=== PATIENT | male | born 1970 | race Two or more races ===

== ENCOUNTER 2018-06-05 17:59 | Emergency (ER) | payer SELFPAY ==
--- NOTE | 2018-06-05 18:25 | EDM.PDOC ---
ED HPI GENERAL MEDICAL PROBLEM - General Chief Complaint: Neuro Symptoms/Deficits Stated Complaint: AMB Time Seen by Provider: 06/05/18 18:25 Source of Information: Reports: Patient History Limitations: Reports: No Limitations - History of Present Illness INITIAL COMMENTS - FREE TEXT/NARRATIVE: HISTORY AND PHYSICAL: History of present illness: Patient is a 48-year-old male who presents to the emergency room by ambulance after a witnessed seizure. A bystander said that the patient had a seizure that lasted several seconds, he did not fall or hit his head as the bystander was able to hold the patient. Patient denies any urinary or fecal incontinence. He states he has a history of seizures but stopped taking his medications as he felt these medications were no longer needed. When asked about his presentation to the emergency room he denies that he had any seizure-like activity. He states he does not want to be further evaluated with like to be discharged to home. "They made me come get checked out, but I feel fine". Patient does drink alcohol daily, chronic. Denies any drug abuse. He denies any fever, chills, chest pain, shortness of breath or cough. Denies any abdominal pain, nausea, vomiting, diarrhea or constipation. Denies any headache, change in vision, light or noise sensitivity. He has been eating and drinking appropriately. Review of systems: As per history of present illness and below otherwise all systems reviewed and negative. Past medical history: As per history of present illness and as reviewed below otherwise noncontributory. Surgical history: As per history of present illness and as reviewed below otherwise noncontributory. Social history: See social history for further information Family history: As per history of present illness and as reviewed below otherwise noncontributory. Physical exam: General: Well-developed and well-nourished 48-year-old male. Alert and oriented. Nontoxic appearing and in no acute distress. HEENT: Patient does have a small open area at the bottom inner lip which appears he had bit it. This is superficial, no current bleeding noted. Scalp is nontender with palpation, normocephalic, pupils equal and reactive bilaterally, negative for conjunctival pallor or scleral icterus, mucous membranes moist, TMs normal bilaterally, throat clear, neck supple, nontender, trachea midline. No drooling or trismus noted. No meningeal signs. No hot potato voice noted. Lungs: Clear to auscultation, breath sounds equal bilaterally, chest nontender. Heart: S1S2, regular rate and rhythm without overt murmur Abdomen: Soft, nondistended, nontender. Negative for masses or hepatosplenomegaly. Negative for costovertebral tenderness. Pelvis: Stable nontender. Genitourinary: Deferred. Rectal: Deferred. Skin: Intact, warm, dry. No lesions or rashes noted. Extremities: Moves all extremities per self without difficulty or deficits. Neurovascular unremarkable. Neuro: Awake, alert, oriented. Cranial nerves II through XII unremarkable. Cerebellum unremarkable. Motor and sensory unremarkable throughout. Exam nonfocal. Notes: Patient is alert and oriented, he is able to speak in full sentences and carry conversation appropriately. I did discuss the risks of leaving without an evaluation, he states he feels fine and does not want any lab testing, IV fluids or further medical management. Patient will be discharged to home with encouragement to follow-up with his primary care provider in the next 1-2 days. Diagnostics: Declines Therapeutics: Declines Prescription: Declines Impression: Encounter for medical screening Medication noncompliance History of seizure disorder Plan: 1. Please follow-up with your primary caregiver and/or the neurologist for further evaluation and management of your seizure disorder. He should be taking her medications as directed. Please do not drive or operate heavy machinery unless you're been cleared by her neurologist. 2. Return to the ED as needed and as discussed. Definitive disposition and diagnosis as appropriate pending reevaluation and review of above. - Related Data Allergies Allergy/AdvReac Type Severity Reaction Status Date / Time No Known Allergies Allergy Verified 06/05/18 18:21 Home Meds: Home Meds . [No Known Home Meds] 06/05/18 [History] ED ROS GENERAL - Review of Systems Review Of Systems: ROS reveals no pertinent complaints other than HPI. ED EXAM, NEURO - Physical Exam Exam: See Below (See dictation) Course - Vital Signs Last Recorded V/S: Last Vital Signs Temp 97.9 F 06/05/18 18:15 Pulse 121 H 06/05/18 18:15 Resp 16 06/05/18 18:15 BP 112/69 06/05/18 18:15 Pulse Ox 96 06/05/18 18:15 Departure - Departure Time of Disposition: 18:33 Disposition: Home, Self-Care 01 Clinical Impression: Nonadherence to medication, Encounter for medical screening examination, History of seizure disorder - Discharge Information Forms: ED Department Discharge Additional Instructions: The following information is given to patients seen in the emergency department who are being discharged to home. This information is to outline your options for follow-up care. We provide all patients seen in our emergency department with a follow-up referral. The need for follow-up, as well as the timing and circumstances, are variable depending upon the specifics of your emergency department visit. If you don't have a primary care physician on staff, we will provide you with a referral. We always advise you to contact your personal physician following an emergency department visit to inform them of the circumstance of the visit and for follow-up with them and/or the need for any referrals to a consulting specialist. The emergency department will also refer you to a specialist when appropriate. This referral assures that you have the opportunity for follow-up care with a specialist. All of these measure are taken in an effort to provide you with optimal care, which includes your follow-up. Under all circumstances we always encourage you to contact your private physician who remains a resource for coordinating your care. When calling for follow-up care, please make the office aware that this follow-up is from your recent emergency room visit. If for any reason you are refused follow-up, please contact the [facility] Emergency Department at and asked to speak to the emergency department charge nurse. [facility] Primary [facility] [address] [place] [id number] [address] [address] [facility] Specialty Care - Neurology Professional Building [address] [place] [address], [address] [place] [address] 1. Please follow-up with your primary caregiver and/or the neurologist for further evaluation and management of your seizure disorder. He should be taking her medications as directed. Please do not drive or operate heavy machinery unless you're been cleared by her neurologist. 2. Return to the ED as needed and as discussed.
[2018-06-05] MEDS ORDERED: LORazepam 2 MG/ML SDV ONE (20:59)
== END 2018-06-05 18:56 | disposition home or self-care (01) ==
LOC: EDBD → MW.ED 17:59
DX: G40.909 Epilepsy, unspecified, not intractable, without status epilepticus (principal); Z91.14 Patient's other noncompliance with medication regimen
CPT/HCPCS: 99284

== ENCOUNTER 2018-06-05 20:25 | Inpatient (IN) | payer SELFPAY ==
[2018-06-05] MEDS ORDERED: Sodium Chloride 0.9% 1,000 ML IV ONE (20:28)
[2018-06-05] MEDS ORDERED: Sodium Chloride 0.9% 2.5 ML Syringe FLUSH PRN (20:28)
--- NOTE | 2018-06-05 20:34 | EDM.PDOC ---
ED HPI GENERAL MEDICAL PROBLEM - General Chief Complaint: Neuro Symptoms/Deficits Stated Complaint: UNKNOWN Time Seen by Provider: 06/05/18 20:26 - History of Present Illness INITIAL COMMENTS - FREE TEXT/NARRATIVE: HISTORY AND PHYSICAL: History of present illness: The patient is a 48-year-old male with a history of alcoholism and chronic alcohol use was just seen here a few hours ago after being brought here by EMS for a brief seizure witnessed by bystanders. According to that report the patient had a brief seizure but did not fall to the ground and was caught by a bystander and was brought here by EMS. On arrival here he was seen and evaluated and was awake alert and communicative and said to the provider that his first seizure was about a year ago and he was prescribed meds but he's not taking them. The patient at that first visit denied any care and was acting inappropriate fashion without slurred speech and was cooperative and coherent and declined further evaluation. The patient was discharged and was out in our waiting area when it was noticed by registration that he was on the ground having a grand mal seizure. Our triage nurse when out there and put him in the recovery position and he seemed to stop seizing and then restart again and on my arrival he was post ictal in the recovery position maintaining his airway. Currently in the ED the patient is moving all extremities and is not talking with me currently. He had no loss of bowel or bladder and does not offer any more history. Review of systems: As per history of present illness and below otherwise all systems reviewed and negative. Past medical history: As per history of present illness and as reviewed below otherwise noncontributory. Surgical history: As per history of present illness and as reviewed below otherwise noncontributory. Social history: No reported history of drug or alcohol abuse. Family history: As per history of present illness and as reviewed below otherwise noncontributory. Physical exam: General: Well-developed cachectic man who is nontoxic and moving all extremities and maintaining his airway. He appears postictal at this time and is nonverbal. HEENT: Atraumatic, normocephalic, pupils reactive, negative for conjunctival pallor or scleral icterus, mucous membranes moist, throat clear, neck supple, nontender, trachea midline. The patient has overall bed 10 constitution but he did bite his upper lip and there is some minimal bleeding and a contusion present. There is no evidence of any scalp defects or deformities and no midline step-offs or defects of the cervical spine Lungs: Clear to auscultation bilaterally with an occasional rhonchi, sounds equal bilaterally, chest nontender. Heart: S1S2, regular rhythm and sensory tachycardic rate on my evaluation no overt murmurs Abdomen: Soft, nondistended, nontender. Negative for masses or hepatosplenomegaly. NABS Pelvis: Stable nontender. Genitourinary: Grossly normal male with bilaterally descended testicles and no evidence of blood at the urethral meatus. There is no loss of bowel or bladder on the patient's underwear Rectal: Deferred. Extremities: Atraumatic, full range of motion with spontaneous movement of all extremities and there is no evidence of any defects deformities or soft tissue swellings Neurovascular unremarkable. Neuro: responsive to painful stimuli but not responding to voice as of yet and appears postictal. Further exam is on available at this time Motor and sensory unremarkable throughout. Exam nonfocal. back: There are no midline step-offs or defects of the thoracic or lumbar spine no posterior rib or posterior pelvis defects or crepitus and no soft tissue injury such as ecchymosis abrasions or soft tissue swelling Diagnostics: Accu-Chek CBC CMP ammonia level alcohol level INR lipase magnesium level UA UDS CT scan of the head Therapeutics: IV O2 monitor IV fluids seizure precautions Ativan Rocephin I was contacted by the lab with them stating that they wanted to redraw the patient's blood work as his CMP results were very elevated. I'm currently awaiting those testing results. The patient responds to voice and exhibits spastic-like movement and some tremors in all of his extremities but is awake and alert and responding to voice and extremities can be moved and redirected. Will give some Ativan as this may be alcohol related. 2218: Case was discussed with Dr. Charles our hospitalist and I've gone over all the labs with him. At this point he is purely alcohol withdrawal/delirium tremens as he is talking about people that are not in the room. He continues to have tremulousness and his alcohol level is 0. He likely had an alcohol withdrawal seizure that we witnessed earlier and does have a history of same. We will admit the patient to the ICU and continue to titrate Ativan. Dr. Charles does not want an Ativan drip at this point. He is aware of the GI labs and the patient's clinical dehydration as well as lab dehydration. Initially the lab reported an elevated ammonia but when it was repeated it was within normal limits. Dr. Charles is also aware of the UA results and that I will give him a dose of Rocephin. Critical care time excluding procedures: 35min Impression: Alcohol withdrawal with delirium, Seizure with history of seizure and medication noncompliance, history of chronic alcoholism and alcohol abuse dehydration, mildly elevated LFTs, UTI Definitive disposition and diagnosis as appropriate pending reevaluation and review of above. - Related Data Allergies Allergy/AdvReac Type Severity Reaction Status Date / Time No Known Allergies Allergy Verified 06/05/18 20:30 Home Meds: Home Meds . [No Known Home Meds] 06/05/18 [History] Past Medical History Neurological History: Reports: Seizure Psychiatric History: Reports: Addiction ED ROS GENERAL - Review of Systems Review Of Systems: ROS reveals no pertinent complaints other than HPI. ED EXAM, GENERAL - Physical Exam Exam: See Below (see dictation) Course - Vital Signs Last Recorded V/S: Last Vital Signs Temp 37.4 C 06/05/18 22:12 Pulse 116 H 06/05/18 22:12 Resp 20 06/05/18 22:12 BP 123/83 06/05/18 22:12 Pulse Ox 98 06/05/18 22:12 - Orders/Labs/Meds Orders: Active Orders 24 hr Category Date Time Status Patient Status [ADT] Stat ADT 06/05/18 22:19 Ordered Blood Glucose Check, Bedside [RC] ONETIME Care 06/05/18 20:27 Active Cardiac Monitoring [RC] . DIRECTED Care 06/05/18 20:27 Active Oxygen Therapy, ED [RC] ASDIRECTED Care 06/05/18 20:27 Active Pulse Oximetry [RC] ASDIRECTED Care 06/05/18 20:27 Active Sodium Chloride 0.9% @ 125 MLS/HR (1,000ml) Med 06/05/18 22:30 Ordered Sodium Chloride 0.9% [Normal Saline] 1,000 ml IV ASDIRECTED Sodium Chloride 0.9% [Saline Flush] Med 06/05/18 20:28 Active 10 ml FLUSH ASDIRECTED PRN Sodium Chloride 0.9% [Saline Flush] Med 06/05/18 20:28 Active 2.5 ml FLUSH ASDIRECTED PRN cefTRIAXone [Rocephin in Dextrose,Iso-Osm 1 GM/50 ML] 1 Med 06/05/18 22:09 Active gm Premix Bag 1 bag IV ONETIME Saline Lock Insert [OM.PC] Stat Oth 06/05/18 20:27 Ordered Medication Orders Ceftriaxone Sodium/Dextrose 1 (gm/ Premix) 50 mls @ 100 mls/hr IV ONETIME ONE Stop: 06/05/18 22:38 Sodium Chloride (Normal Saline) 1,000 mls @ 125 mls/hr IV ASDIRECTED DADA Sodium Chloride (Saline Flush) 10 ml FLUSH ASDIRECTED PRN PRN Reason: Keep Vein Open Sodium Chloride (Saline Flush) 2.5 ml FLUSH ASDIRECTED PRN PRN Reason: Keep Vein Open Labs: Laboratory Tests 06/05/18 06/05/18 06/05/18 Range/Units 20:40 20:40 20:40 WBC 8.76 (4.0-11.0) K/uL RBC 4.86 (4.50-5.90) M/uL Hgb 17.1 H (13.0-17.0) g/dL Hct 48.8 (38.0-50.0) % MCV 100.4 H (80.0-98.0) fL MCH 35.2 H (27.0-32.0) pg MCHC 35.0 (31.0-37.0) g/dL RDW Std Deviation 50.5 (28.0-62.0) fl RDW Coeff of Diana 14 (11.0-15.0) % Plt Count 116 L (150-400) K/uL MPV 13.20 H (7.40-12.00) fL Neut % (Auto) 72.3 (48.0-80.0) % Lymph % (Auto) 13.9 L (16.0-40.0) % Power % (Auto) 13.7 (0.0-15.0) % Eos % (Auto) 0.0 (0.0-7.0) % Baso % (Auto) 0.1 (0.0-1.5) % Neut # (Auto) 6.3 H (1.4-5.7) K/uL Lymph # (Auto) 1.2 (0.6-2.4) K/uL Power # (Auto) 1.2 H (0.0-0.8) K/uL Eos # (Auto) 0.0 (0.0-0.7) K/uL Baso # (Auto) 0.0 (0.0-0.1) K/uL INR 1.05 Sodium (136-148) mmol/L Potassium (3.5-5.1) mmol/L Chloride (98-107) mmol/L Carbon Dioxide (21.0-32.0) mmol/L BUN (7.0-18.0) mg/dL Creatinine (0.8-1.3) mg/dL Est Cr Clr Drug Dosing Estimated GFR (MDRD) ml/min Glucose (74-106) mg/dL Calcium (8.5-10.1) mg/dL Magnesium (1.8-2.4) mg/dL Total Bilirubin (0.2-1.0) mg/dL AST (15-37) IU/L ALT (14-63) IU/L Alkaline Phosphatase (46-116) U/L Ammonia 40 (19-54) ug/dL Total Protein (6.4-8.2) g/dL Albumin (3.4-5.0) g/dL Globulin (2.6-4.0) g/dL Albumin/Globulin Ratio (0.9-1.6) Lipase (73-393) U/L Urine Color Urine Appearance Urine pH (5.0-8.0) Ur Specific [place] (1.001-1.035) Urine Protein (NEGATIVE) mg/dL Urine Glucose (UA) (NEGATIVE) mg/dL Urine Ketones (NEGATIVE) mg/dL Urine Occult Blood (NEGATIVE) Urine Nitrite (NEGATIVE) Urine Bilirubin (NEGATIVE) Urine Ictotest Urine Urobilinogen (<2.0) EU/dL Ur Leukocyte Esterase (NEGATIVE) Urine RBC (0-2/HPF) Urine WBC (0-5/HPF) Ur Epithelial Cells (NONE-FEW) Amorphous Sediment (NEGATIVE) Urine Bacteria (NEGATIVE) Hyaline Casts (0-2/LPF) Urine Mucus (NONE-MOD) Urine Opiates Screen (NEGATIVE) Ur Oxycodone Screen (NEGATIVE) Urine Methadone Screen (NEGATIVE) Ur Barbiturates Screen (NEGATIVE) Ur Phencyclidine Scrn (NEGATIVE) Ur Amphetamine Screen (NEGATIVE) U Methamphetamines Scrn (NEGATIVE) U Benzodiazepines Scrn (NEGATIVE) U Cocaine Metab Screen (NEGATIVE) U Marijuana (THC) Screen (NEGATIVE) Ethyl Alcohol mg/dL 06/05/18 06/05/18 06/05/18 Range/Units 20:45 20:45 21:17 WBC (4.0-11.0) K/uL RBC (4.50-5.90) M/uL Hgb (13.0-17.0) g/dL Hct (38.0-50.0) % MCV (80.0-98.0) fL MCH (27.0-32.0) pg MCHC (31.0-37.0) g/dL RDW Std Deviation (28.0-62.0) fl RDW Coeff of Diana (11.0-15.0) % Plt Count (150-400) K/uL MPV (7.40-12.00) fL Neut % (Auto) (48.0-80.0) % Lymph % (Auto) (16.0-40.0) % Power % (Auto) (0.0-15.0) % Eos % (Auto) (0.0-7.0) % Baso % (Auto) (0.0-1.5) % Neut # (Auto) (1.4-5.7) K/uL Lymph # (Auto) (0.6-2.4) K/uL Power # (Auto) (0.0-0.8) K/uL Eos # (Auto) (0.0-0.7) K/uL Baso # (Auto) (0.0-0.1) K/uL INR Sodium 134 L (136-148) mmol/L Potassium 3.3 L (3.5-5.1) mmol/L Chloride 93 L (98-107) mmol/L Carbon Dioxide 25.6 (21.0-32.0) mmol/L BUN 35 H (7.0-18.0) mg/dL Creatinine 2.4 H (0.8-1.3) mg/dL Est Cr Clr Drug Dosing TNP Estimated GFR (MDRD) 28.9 ml/min Glucose 122 H (74-106) mg/dL Calcium 9.4 (8.5-10.1) mg/dL Magnesium 1.9 (1.8-2.4) mg/dL Total Bilirubin 1.7 H (0.2-1.0) mg/dL AST 123 H (15-37) IU/L ALT 75 H (14-63) IU/L Alkaline Phosphatase 83 (46-116) U/L Ammonia (19-54) ug/dL Total Protein 8.1 (6.4-8.2) g/dL Albumin 3.8 (3.4-5.0) g/dL Globulin 4.3 H (2.6-4.0) g/dL Albumin/Globulin Ratio 0.9 (0.9-1.6) Lipase 101 (73-393) U/L Urine Color DARK YELLOW Urine Appearance CLOUDY Urine pH 5.5 (5.0-8.0) Ur Specific [place] >= 1.030 (1.001-1.035) Urine Protein >=300 H (NEGATIVE) mg/dL Urine Glucose (UA) NEGATIVE (NEGATIVE) mg/dL Urine Ketones 15 H (NEGATIVE) mg/dL Urine Occult Blood LARGE H (NEGATIVE) Urine Nitrite POSITIVE H (NEGATIVE) Urine Bilirubin MODERATE H (NEGATIVE) Urine Ictotest NEGATIVE Urine Urobilinogen 1.0 (<2.0) EU/dL Ur Leukocyte Esterase NEGATIVE (NEGATIVE) Urine RBC 0-3 (0-2/HPF) Urine WBC 3-6 (0-5/HPF) Ur Epithelial Cells FEW (NONE-FEW) Amorphous Sediment LIGHT (NEGATIVE) Urine Bacteria 3+ H (NEGATIVE) Hyaline Casts 12-15 (0-2/LPF) Urine Mucus LIGHT (NONE-MOD) Urine Opiates Screen NEGATIVE (NEGATIVE) Ur Oxycodone Screen NEGATIVE (NEGATIVE) Urine Methadone Screen NEGATIVE (NEGATIVE) Ur Barbiturates Screen NEGATIVE (NEGATIVE) Ur Phencyclidine Scrn NEGATIVE (NEGATIVE) Ur Amphetamine Screen NEGATIVE (NEGATIVE) U Methamphetamines Scrn NEGATIVE (NEGATIVE) U Benzodiazepines Scrn NEGATIVE (NEGATIVE) U Cocaine Metab Screen NEGATIVE (NEGATIVE) U Marijuana (THC) Screen NEGATIVE (NEGATIVE) Ethyl Alcohol <3 mg/dL Meds: Medications Generic Name Dose Route Start Last Admin Trade Name Freq PRN Reason Stop Dose Admin Ceftriaxone Sodium/Dextrose 1 50 mls @ 100 mls/hr 06/05/18 22:09 gm/ Premix IV 06/05/18 22:38 ONETIME ONE Sodium Chloride 1,000 mls @ 125 mls/hr 06/05/18 22:30 Normal Saline IV ASDIRECTED DADA Sodium Chloride 10 ml 06/05/18 20:28 Saline Flush FLUSH ASDIRECTED PRN Keep Vein Open Sodium Chloride 2.5 ml 06/05/18 20:28 Saline Flush FLUSH ASDIRECTED PRN Keep Vein Open Discontinued Medications Generic Name Dose Route Start Last Admin Trade Name Martha PRN Reason Stop Dose Admin Sodium Chloride 1,000 mls @ 999 mls/hr 06/05/18 20:28 06/05/18 20:36 Normal Saline IV 06/05/18 21:28 999 mls/hr STAT ONE Administration Lactulose 20 gm 06/05/18 22:08 Chronulac PO 06/05/18 22:09 ONETIME ONE Lorazepam 1 mg 06/05/18 21:17 06/05/18 21:19 Ativan IVPUSH 06/05/18 21:18 1 mg NOW STA Administration Lorazepam 1 mg 06/05/18 22:18 Ativan IVPUSH 06/05/18 22:19 ONETIME STA Departure - Departure Time of Disposition: 22:22 Disposition: Admitted As Inpatient 65 Condition: Serious Clinical Impression: Alcohol withdrawal with delirium, Alcoholism /alcohol abuse - Discharge Information Forms: ED Department Discharge - My Orders Last 24 Hours: My Active Orders 06/05/18 20:27 Blood Glucose Check, Bedside [RC] ONETIME Cardiac Monitoring [RC] . DIRECTED Oxygen Therapy, ED [RC] ASDIRECTED Pulse Oximetry [RC] ASDIRECTED Saline Lock Insert [OM.PC] Stat 06/05/18 20:28 Sodium Chloride 0.9% [Saline Flush] 10 ml FLUSH ASDIRECTED PRN Sodium Chloride 0.9% [Saline Flush] 2.5 ml FLUSH ASDIRECTED PRN 06/05/18 22:09 cefTRIAXone [Rocephin in Dextrose,Iso-Osm 1 GM/50 ML] 1 gm Premix Bag 1 bag IV ONETIME 06/05/18 22:19 Patient Status [ADT] Stat 06/05/18 22:30 Sodium Chloride 0.9% @ 125 MLS/HR (1,000ml) Sodium Chloride 0.9% [Normal Saline ] 1,000 ml IV ASDIRECTED - Assessment/Plan Last 24 Hours: My Active Orders 06/05/18 20:27 Blood Glucose Check, Bedside [RC] ONETIME Cardiac Monitoring [RC] . DIRECTED Oxygen Therapy, ED [RC] ASDIRECTED Pulse Oximetry [RC] ASDIRECTED Saline Lock Insert [OM.PC] Stat 06/05/18 20:28 Sodium Chloride 0.9% [Saline Flush] 10 ml FLUSH ASDIRECTED PRN Sodium Chloride 0.9% [Saline Flush] 2.5 ml FLUSH ASDIRECTED PRN 06/05/18 22:09 cefTRIAXone [Rocephin in Dextrose,Iso-Osm 1 GM/50 ML] 1 gm Premix Bag 1 bag IV ONETIME 06/05/18 22:19 Patient Status [ADT] Stat 06/05/18 22:30 Sodium Chloride 0.9% @ 125 MLS/HR (1,000ml) Sodium Chloride 0.9% [Normal Saline ] 1,000 ml IV ASDIRECTED
[2018-06-05] MEDS ORDERED: LORazepam 2 MG/ML SDV IVPUSH STA ×2 (21:17→22:18)
--- NOTE | 2018-06-05 21:32 | CT ---
INDICATION: pain, had witnessed seizure CT HEAD WITHOUT CONTRAST TECHNIQUE: Multiple axial CT images were performed through the head without intravenous contrast administration. COMPARISON: No previous studies are currently available for comparison. FINDINGS: No acute intracranial hemorrhage is identified. No extra-axial collections are evident and there is no mass effect or midline shift. Ventricles are normal in size and configuration. Brain parenchyma appears normal with unremarkable hager-white differentiation. There is a chronic-appearing mild medial blowout fracture of the left orbit. Osseous structures are within normal limits and no acute fractures are seen. Included portions of the paranasal sinuses and mastoid air cells are normally aerated. IMPRESSION: No acute intracranial abnormality identified. TIERNEY PRESTON MD [facility] Dictated by: Jason Preston MD @ 06/05/2018 21:31:32 (Electronically Signed)
[2018-06-05 22:03] LABS: CHLORIDE,CL 93 mmol/L (98-107); SODIUM,NA 134 mmol/L (136-148)
[2018-06-05] MEDS ORDERED: Lactulose Soln 10 GM/15 ML 15 ML UD Cup PO ONE (22:08)
[2018-06-05] MEDS ORDERED: cefTRIAXone 1 GM in Premix Bag 1 BAG IV ONE (22:09)
[2018-06-05] MEDS ORDERED: Sodium Chloride 0.9% 0 ML ONE (22:29)
[2018-06-05] MEDS ORDERED: Sodium Chloride 0.9% 1,000 ML IV SCH (22:30)
[2018-06-05] MEDS ORDERED: Morphine 2 MG/ML Syringe IVPUSH PRN (23:43)
[2018-06-05] MEDS ORDERED: MVI, Adult with Vitamin K 10 ML, Thiamine 100 MG, Folic Acid 1 MG in Sodium Chloride 0.... IV ONE ×4 (23:48)
--- NOTE | 2018-06-05 23:50 | PCM.HP ---
H&P History of Present Illness - General Date of Service: 06/06/18 Admit Problem/Dx: Admission Diagnosis/Problem Admission Diagnosis/Problem Alcohol withdrawal syndrome, with delirium Source of Information: Old Records History Limitations: Reports: Altered Mental Status - History of Present Illness Initial Comments - Free Text/Narative: The patient is a 48-year-old gentleman who had presented to the emergency department out of concern for seizure. This was witnessed by bystanders and he is brought in by EMS. The patient has a long history of alcoholism and chronic alcohol abuse. The patient had first had declined any care and was acting appropriate and he was noted to have a seizure in the waiting room. Since that time the patient is been mentally altered, tremors, hallucinating and having inappropriate conversations. Secondary to the patient's altered mental status he is not able to participate in any meaningful way in his history and physical. Information has been taken from the patient's previous records and family members are not available. Onset of Symptoms: Reports: Unknown/Unsure - Related Data Allergies/Adverse Reactions: Allergies Allergy/AdvReac Type Severity Reaction Status Date / Time No Known Allergies Allergy Verified 06/05/18 20:30 Home Medications: Home Meds . [No Known Home Meds] 06/05/18 [History] Past Medical History Neurological History: Reports: Seizure Psychiatric History: Reports: Addiction - Past Surgical History Neurological Surgical History: Reports: None Social & Family History - Family History Family Medical History: Noncontributory - Tobacco Use Smoking Status *Q: Never Smoker Second Hand Smoke Exposure: No - Caffeine Use Caffeine Use: Reports: None - Alcohol Use Alcohol Use History: Yes Days Per Week of Alcohol Use: 7 Number of Drinks Per Day: 12 Total Drinks Per Week: 84 - Recreational Drug Use Recreational Drug Use: No H&P Review of Systems - Review of Systems: Review Of Systems: Unable To Obtain Exam - Exam Exam: See Below - Vital Signs Vital Signs: Last Vital Signs Temp 37.4 C 06/05/18 22:12 Pulse 116 H 06/05/18 22:12 Resp 20 06/05/18 22:12 BP 123/83 06/05/18 22:12 Pulse Ox 98 06/05/18 22:12 Weight: 53.4 kg - Exam Quality Assessment: Supplemental Oxygen General: No: Alert, Oriented, Cooperative HEENT: Conjunctiva Clear, Nares Patent. No: Mucosa Moist & [place] (Dry, poor oral hygiene) Neck: Supple, Trachea Midline Lungs: Clear to Auscultation, Normal Respiratory Effort Cardiovascular: Regular Rhythm. No: Regular Rate (Tachycardia 110 on monitor) GI/Abdominal Exam: Normal Bowel Sounds, Soft, No Distention (Male) Exam: Deferred Rectal (Males) Exam: Deferred Back Exam: Normal Inspection. No: Full Range of Motion (Unable to fully assess) Extremities: Normal Inspection, No Pedal Edema Skin: Warm, Dry, Intact Neurological: No: Cranial Nerves Intact (Unable to fully assess), Normal Speech Neuro Extensive - Mental Status: No: Alert, Oriented x3, Normal Mood/Affect, Normal Cognition Psychiatric: Agitated, Hallucinations, Withdrawal Symptoms - Patient Data Lab Results Last 24 hrs: Laboratory Results - last 24 hr 06/05/18 06/05/18 06/05/18 Range/Units 20:40 20:40 20:40 WBC 8.76 (4.0-11.0) K/uL RBC 4.86 (4.50-5.90) M/uL Hgb 17.1 H (13.0-17.0) g/dL Hct 48.8 (38.0-50.0) % MCV 100.4 H (80.0-98.0) fL MCH 35.2 H (27.0-32.0) pg MCHC 35.0 (31.0-37.0) g/dL RDW Std Deviation 50.5 (28.0-62.0) fl RDW Coeff of Diana 14 (11.0-15.0) % Plt Count 116 L (150-400) K/uL MPV 13.20 H (7.40-12.00) fL Neut % (Auto) 72.3 (48.0-80.0) % Lymph % (Auto) 13.9 L (16.0-40.0) % Ward % (Auto) 13.7 (0.0-15.0) % Eos % (Auto) 0.0 (0.0-7.0) % Baso % (Auto) 0.1 (0.0-1.5) % Neut # (Auto) 6.3 H (1.4-5.7) K/uL Lymph # (Auto) 1.2 (0.6-2.4) K/uL Ward # (Auto) 1.2 H (0.0-0.8) K/uL Eos # (Auto) 0.0 (0.0-0.7) K/uL Baso # (Auto) 0.0 (0.0-0.1) K/uL INR 1.05 Sodium (136-148) mmol/L Potassium (3.5-5.1) mmol/L Chloride (98-107) mmol/L Carbon Dioxide (21.0-32.0) mmol/L BUN (7.0-18.0) mg/dL Creatinine (0.8-1.3) mg/dL Est Cr Clr Drug Dosing Estimated GFR (MDRD) ml/min Glucose (74-106) mg/dL Calcium (8.5-10.1) mg/dL Magnesium (1.8-2.4) mg/dL Total Bilirubin (0.2-1.0) mg/dL AST (15-37) IU/L ALT (14-63) IU/L Alkaline Phosphatase (46-116) U/L Ammonia 40 (19-54) ug/dL Total Protein (6.4-8.2) g/dL Albumin (3.4-5.0) g/dL Globulin (2.6-4.0) g/dL Albumin/Globulin Ratio (0.9-1.6) Lipase (73-393) U/L Urine Color Urine Appearance Urine pH (5.0-8.0) Ur Specific [place] (1.001-1.035) Urine Protein (NEGATIVE) mg/dL Urine Glucose (UA) (NEGATIVE) mg/dL Urine Ketones (NEGATIVE) mg/dL Urine Occult Blood (NEGATIVE) Urine Nitrite (NEGATIVE) Urine Bilirubin (NEGATIVE) Urine Ictotest Urine Urobilinogen (<2.0) EU/dL Ur Leukocyte Esterase (NEGATIVE) Urine RBC (0-2/HPF) Urine WBC (0-5/HPF) Ur Epithelial Cells (NONE-FEW) Amorphous Sediment (NEGATIVE) Urine Bacteria (NEGATIVE) Hyaline Casts (0-2/LPF) Urine Mucus (NONE-MOD) Urine Opiates Screen (NEGATIVE) Ur Oxycodone Screen (NEGATIVE) Urine Methadone Screen (NEGATIVE) Ur Barbiturates Screen (NEGATIVE) Ur Phencyclidine Scrn (NEGATIVE) Ur Amphetamine Screen (NEGATIVE) U Methamphetamines Scrn (NEGATIVE) U Benzodiazepines Scrn (NEGATIVE) U Cocaine Metab Screen (NEGATIVE) U Marijuana (THC) Screen (NEGATIVE) Ethyl Alcohol mg/dL 06/05/18 06/05/18 06/05/18 Range/Units 20:45 20:45 21:17 WBC (4.0-11.0) K/uL RBC (4.50-5.90) M/uL Hgb (13.0-17.0) g/dL Hct (38.0-50.0) % MCV (80.0-98.0) fL MCH (27.0-32.0) pg MCHC (31.0-37.0) g/dL RDW Std Deviation (28.0-62.0) fl RDW Coeff of Diana (11.0-15.0) % Plt Count (150-400) K/uL MPV (7.40-12.00) fL Neut % (Auto) (48.0-80.0) % Lymph % (Auto) (16.0-40.0) % Ward % (Auto) (0.0-15.0) % Eos % (Auto) (0.0-7.0) % Baso % (Auto) (0.0-1.5) % Neut # (Auto) (1.4-5.7) K/uL Lymph # (Auto) (0.6-2.4) K/uL Ward # (Auto) (0.0-0.8) K/uL Eos # (Auto) (0.0-0.7) K/uL Baso # (Auto) (0.0-0.1) K/uL INR Sodium 134 L (136-148) mmol/L Potassium 3.3 L (3.5-5.1) mmol/L Chloride 93 L (98-107) mmol/L Carbon Dioxide 25.6 (21.0-32.0) mmol/L BUN 35 H (7.0-18.0) mg/dL Creatinine 2.4 H (0.8-1.3) mg/dL Est Cr Clr Drug Dosing TNP Estimated GFR (MDRD) 28.9 ml/min Glucose 122 H (74-106) mg/dL Calcium 9.4 (8.5-10.1) mg/dL Magnesium 1.9 (1.8-2.4) mg/dL Total Bilirubin 1.7 H (0.2-1.0) mg/dL AST 123 H (15-37) IU/L ALT 75 H (14-63) IU/L Alkaline Phosphatase 83 (46-116) U/L Ammonia (19-54) ug/dL Total Protein 8.1 (6.4-8.2) g/dL Albumin 3.8 (3.4-5.0) g/dL Globulin 4.3 H (2.6-4.0) g/dL Albumin/Globulin Ratio 0.9 (0.9-1.6) Lipase 101 (73-393) U/L Urine Color DARK YELLOW Urine Appearance CLOUDY Urine pH 5.5 (5.0-8.0) Ur Specific [place] >= 1.030 (1.001-1.035) Urine Protein >=300 H (NEGATIVE) mg/dL Urine Glucose (UA) NEGATIVE (NEGATIVE) mg/dL Urine Ketones 15 H (NEGATIVE) mg/dL Urine Occult Blood LARGE H (NEGATIVE) Urine Nitrite POSITIVE H (NEGATIVE) Urine Bilirubin MODERATE H (NEGATIVE) Urine Ictotest NEGATIVE Urine Urobilinogen 1.0 (<2.0) EU/dL Ur Leukocyte Esterase NEGATIVE (NEGATIVE) Urine RBC 0-3 (0-2/HPF) Urine WBC 3-6 (0-5/HPF) Ur Epithelial Cells FEW (NONE-FEW) Amorphous Sediment LIGHT (NEGATIVE) Urine Bacteria 3+ H (NEGATIVE) Hyaline Casts 12-15 (0-2/LPF) Urine Mucus LIGHT (NONE-MOD) Urine Opiates Screen NEGATIVE (NEGATIVE) Ur Oxycodone Screen NEGATIVE (NEGATIVE) Urine Methadone Screen NEGATIVE (NEGATIVE) Ur Barbiturates Screen NEGATIVE (NEGATIVE) Ur Phencyclidine Scrn NEGATIVE (NEGATIVE) Ur Amphetamine Screen NEGATIVE (NEGATIVE) U Methamphetamines Scrn NEGATIVE (NEGATIVE) U Benzodiazepines Scrn NEGATIVE (NEGATIVE) U Cocaine Metab Screen NEGATIVE (NEGATIVE) U Marijuana (THC) Screen NEGATIVE (NEGATIVE) Ethyl Alcohol <3 mg/dL Result Diagrams: 06/05/18 20:40 06/05/18 21:17 - Problem List (1) Alcohol withdrawal with delirium SNOMED Code(s): 3307433 ICD Code: F10.231 - ALCOHOL DEPENDENCE WITH WITHDRAWAL DELIRIUM Status: Acute Current Visit: No (2) History of seizure disorder SNOMED Code(s): 390736638 ICD Code: Z86.69 - PERSONAL HISTORY OF DIS OF THE NERVOUS SYS AND SENSE ORGANS Status: Acute Current Visit: No (3) Alcoholism /alcohol abuse SNOMED Code(s): 0765210 ICD Code: F10.20 - ALCOHOL DEPENDENCE, UNCOMPLICATED Status: Acute Current Visit: No Problem List Initiated/Reviewed/Updated: Yes Orders Last 24hrs: Active Orders 24 hr Category Date Time Status Patient Status [ADT] Stat ADT 06/05/18 22:19 Active Bedrest Bedside Commode [RC] ASDIRECTED Care 06/05/18 23:43 Ordered Blood Glucose Check, Bedside [RC] ONETIME Care 06/05/18 20:27 Active CIWAA Assessment [RC] Q1H Care 06/05/18 23:43 Ordered Cardiac Monitoring [RC] . DIRECTED Care 06/05/18 20:27 Active Cardiac Monitoring [RC] CONTINUOUS Care 06/05/18 23:43 Ordered Oxygen Therapy [RC] PRN Care 06/05/18 23:43 Ordered Oxygen Therapy, ED [RC] ASDIRECTED Care 06/05/18 20:27 Active Pulse Oximetry [RC] ASDIRECTED Care 06/05/18 20:27 Active Urinary Catheter Assessment [RC] ASDIRECTED Care 06/05/18 23:43 Ordered VTE/DVT Education [RC] PER UNIT ROUTINE Care 06/05/18 23:43 Ordered Vital Signs [RC] Q4H Care 06/05/18 23:43 Ordered Nothing per Oral Now Diet [DIET] Diet 06/05/18 Breakfast Ordered CBC WITH AUTO DIFF [HEME] AM Lab 06/06/18 05:11 Ordered COMPREHENSIVE METABOLIC PN,CMP [CHEM] AM Lab 06/06/18 05:11 Ordered MAGNESIUM [CHEM] AM Lab 06/06/18 05:11 Ordered Enoxaparin [Lovenox] Med 06/05/18 23:45 Ordered 40 mg SUBCUT Q24H LORazepam 20 MG in Normal Saline @ 1 MG/HR(100ml) Med 06/05/18 23:45 Ordered LORazepam [Ativan] 20 mg Sodium Chloride 0.9% [Normal Saline] 90 ml IV TITRATE MVI, Adult with Vitamin K [Infuvite Adult] 10 ml Med 06/05/18 23:48 Ordered Thiamine [Vitamin B-1] 100 mg Folic Acid 1 mg Sodium Chloride 0.9% [Normal Saline] 1,000 ml IV ONETIME Morphine Med 06/05/18 23:43 Ordered 2 mg IVPUSH Q2H PRN Ondansetron [Zofran] Med 06/05/18 23:45 Ordered 4 mg IVPUSH Q4H Sodium Chloride 0.9% [Normal Saline] 1,000 ml Med 06/05/18 22:30 Active IV ASDIRECTED Sodium Chloride 0.9% [Saline Flush] Med 06/05/18 20:28 Active 10 ml FLUSH ASDIRECTED PRN Sodium Chloride 0.9% [Saline Flush] Med 06/05/18 20:28 Active 2.5 ml FLUSH ASDIRECTED PRN Saline Lock Insert [OM.PC] Stat Oth 06/05/18 20:27 Ordered Seizure Precautions [OM.PC] Routine Oth 06/05/18 23:49 Ordered Resuscitation Status Routine Resus Stat 06/05/18 23:43 Ordered Medication Orders Enoxaparin Sodium (Lovenox) 40 mg SUBCUT Q24H DADA Sodium Chloride (Normal Saline) 1,000 mls @ 125 mls/hr IV ASDIRECTED DADA Last Admin: 06/05/18 22:23 Dose: 125 mls/hr Lorazepam 20 mg/ Sodium (Chloride) 100 mls @ 5 mls/hr IV TITRATE DADA; Protocol Multivitamins/Minerals 10 ml/Thiamine HCl 100 mg/ Folic Acid 1 mg/ Sodium Chloride 1,011.2 mls @ 100 mls/hr IV ONETIME ONE Stop: 06/06/18 09:54 Morphine Sulfate (Morphine) 2 mg IVPUSH Q2H PRN PRN Reason: Pain (severe 7-10) Stop: 06/06/18 23:44 Ondansetron HCl (Zofran) 4 mg IVPUSH Q4H DADA Sodium Chloride (Saline Flush) 10 ml FLUSH ASDIRECTED PRN PRN Reason: Keep Vein Open Sodium Chloride (Saline Flush) 2.5 ml FLUSH ASDIRECTED PRN PRN Reason: Keep Vein Open Assessment/Plan Comment:: The patient is a 48-year-old gentleman who apparently is having alcohol related withdrawal seizures and delirium tremens. The patient will be admitted to the ICU as inpatient. I've ordered a banana bag with multivitamins and thiamine and folate. The patient will also have a Hurley catheter installed. Seizure precautions been ordered. The patient will be placed on a titrated Ativan IV protocol. Repeat laboratory studies have been ordered for the morning. Patient would likely require intense inpatient rehabilitation if desired. We'll keep the patient on telemetry. CIWA has been started. DVT prophylaxis with Lovenox.
[2018-06-06] MEDS ORDERED: LORazepam 2 MG/ML SDV IV SCH (00:45)
[2018-06-06] MEDS: Enoxaparin 30 MG/0.3 ML Syringe SUBCUT SCH ×2 (01:03→23:11)
[2018-06-06] MEDS: Pantoprazole 40 MG Vial IVPUSH SCH (01:03)
[2018-06-06] MEDS: Ondansetron 4 MG/2 ML SDV IVPUSH SCH ×5 (01:16→15:16)
[2018-06-06] MEDS ORDERED: LORazepam 2 MG/ML SDV IV PRN ×2 (02:53→03:08)
[2018-06-06] MEDS: LORazepam 2 MG/ML SDV IV PRN ×10 (06:14→19:55)
[2018-06-06 07:12] LABS: CHLORIDE,CL 99 mmol/L (98-107); SODIUM,NA 138 mmol/L (136-148)
--- NOTE | 2018-06-06 08:29 | PCM.PN ---
- General Info Date of Service: 06/06/18 Admission Dx/Problem (Free Text): Admission Diagnosis/Problem Admission Diagnosis/Problem Alcohol withdrawal syndrome, with delirium Subjective Update: The patient is a 48-year-old gentleman who was admitted to ICU secondary to acute delirium tremens and seizure due to alcohol withdrawal. The patient is somewhat more alert today. He is still disoriented to place and time. Patient says that he wants to go home. Functional Status: Reports: Pain Controlled - Review of Systems Systems Review Comment:: Not reliable - Patient Data Vitals - Most Recent: Last Vital Signs Temp 37.2 C 06/06/18 08:00 Pulse 67 06/06/18 08:00 Resp 18 06/06/18 08:00 BP 111/48 L 06/06/18 08:00 Pulse Ox 99 06/06/18 08:00 Weight - Most Recent: 56.1 kg I&O - Last 24 Hours: Intake & Output 06/05/18 06/06/18 06/06/18 22:59 06:59 14:59 Intake Total 1655 Output Total 340 60 Balance 1315 -60 Lab Results Last 24 Hours: Laboratory Results - last 24 hr 06/05/18 06/05/18 06/05/18 Range/Units 20:40 20:40 20:40 WBC 8.76 (4.0-11.0) K/uL RBC 4.86 (4.50-5.90) M/uL Hgb 17.1 H (13.0-17.0) g/dL Hct 48.8 (38.0-50.0) % MCV 100.4 H (80.0-98.0) fL MCH 35.2 H (27.0-32.0) pg MCHC 35.0 (31.0-37.0) g/dL RDW Std Deviation 50.5 (28.0-62.0) fl RDW Coeff of Diana 14 (11.0-15.0) % Plt Count 116 L (150-400) K/uL MPV 13.20 H (7.40-12.00) fL Neut % (Auto) 72.3 (48.0-80.0) % Lymph % (Auto) 13.9 L (16.0-40.0) % [place] % (Auto) 13.7 (0.0-15.0) % Eos % (Auto) 0.0 (0.0-7.0) % Baso % (Auto) 0.1 (0.0-1.5) % Neut # (Auto) 6.3 H (1.4-5.7) K/uL Lymph # (Auto) 1.2 (0.6-2.4) K/uL [place] # (Auto) 1.2 H (0.0-0.8) K/uL Eos # (Auto) 0.0 (0.0-0.7) K/uL Baso # (Auto) 0.0 (0.0-0.1) K/uL Nucleated RBC % /100WBC Nucleated RBCs # K/uL INR 1.05 Sodium (136-148) mmol/L Potassium (3.5-5.1) mmol/L Chloride (98-107) mmol/L Carbon Dioxide (21.0-32.0) mmol/L BUN (7.0-18.0) mg/dL Creatinine (0.8-1.3) mg/dL Est Cr Clr Drug Dosing Estimated GFR (MDRD) ml/min Glucose (74-106) mg/dL Calcium (8.5-10.1) mg/dL Magnesium (1.8-2.4) mg/dL Total Bilirubin (0.2-1.0) mg/dL AST (15-37) IU/L ALT (14-63) IU/L Alkaline Phosphatase (46-116) U/L Ammonia 40 (19-54) ug/dL Creatine Kinase (26-308) U/L Total Protein (6.4-8.2) g/dL Albumin (3.4-5.0) g/dL Globulin (2.6-4.0) g/dL Albumin/Globulin Ratio (0.9-1.6) Lipase (73-393) U/L Urine Color Urine Appearance Urine pH (5.0-8.0) Ur Specific [place] (1.001-1.035) Urine Protein (NEGATIVE) mg/dL Urine Glucose (UA) (NEGATIVE) mg/dL Urine Ketones (NEGATIVE) mg/dL Urine Occult Blood (NEGATIVE) Urine Nitrite (NEGATIVE) Urine Bilirubin (NEGATIVE) Urine Ictotest Urine Urobilinogen (<2.0) EU/dL Ur Leukocyte Esterase (NEGATIVE) Urine RBC (0-2/HPF) Urine WBC (0-5/HPF) Ur Epithelial Cells (NONE-FEW) Amorphous Sediment (NEGATIVE) Urine Bacteria (NEGATIVE) Hyaline Casts (0-2/LPF) Urine Mucus (NONE-MOD) Urine Opiates Screen (NEGATIVE) Ur Oxycodone Screen (NEGATIVE) Urine Methadone Screen (NEGATIVE) Ur Barbiturates Screen (NEGATIVE) Ur Phencyclidine Scrn (NEGATIVE) Ur Amphetamine Screen (NEGATIVE) U Methamphetamines Scrn (NEGATIVE) U Benzodiazepines Scrn (NEGATIVE) U Cocaine Metab Screen (NEGATIVE) U Marijuana (THC) Screen (NEGATIVE) Ethyl Alcohol mg/dL 06/05/18 06/05/18 06/05/18 Range/Units 20:45 20:45 21:17 WBC (4.0-11.0) K/uL RBC (4.50-5.90) M/uL Hgb (13.0-17.0) g/dL Hct (38.0-50.0) % MCV (80.0-98.0) fL MCH (27.0-32.0) pg MCHC (31.0-37.0) g/dL RDW Std Deviation (28.0-62.0) fl RDW Coeff of Diana (11.0-15.0) % Plt Count (150-400) K/uL MPV (7.40-12.00) fL Neut % (Auto) (48.0-80.0) % Lymph % (Auto) (16.0-40.0) % [place] % (Auto) (0.0-15.0) % Eos % (Auto) (0.0-7.0) % Baso % (Auto) (0.0-1.5) % Neut # (Auto) (1.4-5.7) K/uL Lymph # (Auto) (0.6-2.4) K/uL [place] # (Auto) (0.0-0.8) K/uL Eos # (Auto) (0.0-0.7) K/uL Baso # (Auto) (0.0-0.1) K/uL Nucleated RBC % /100WBC Nucleated RBCs # K/uL INR Sodium 134 L (136-148) mmol/L Potassium 3.3 L (3.5-5.1) mmol/L Chloride 93 L (98-107) mmol/L Carbon Dioxide 25.6 (21.0-32.0) mmol/L BUN 35 H (7.0-18.0) mg/dL Creatinine 2.4 H (0.8-1.3) mg/dL Est Cr Clr Drug Dosing TNP Estimated GFR (MDRD) 28.9 ml/min Glucose 122 H (74-106) mg/dL Calcium 9.4 (8.5-10.1) mg/dL Magnesium 1.9 (1.8-2.4) mg/dL Total Bilirubin 1.7 H (0.2-1.0) mg/dL AST 123 H (15-37) IU/L ALT 75 H (14-63) IU/L Alkaline Phosphatase 83 (46-116) U/L Ammonia (19-54) ug/dL Creatine Kinase (26-308) U/L Total Protein 8.1 (6.4-8.2) g/dL Albumin 3.8 (3.4-5.0) g/dL Globulin 4.3 H (2.6-4.0) g/dL Albumin/Globulin Ratio 0.9 (0.9-1.6) Lipase 101 (73-393) U/L Urine Color DARK YELLOW Urine Appearance CLOUDY Urine pH 5.5 (5.0-8.0) Ur Specific [place] >= 1.030 (1.001-1.035) Urine Protein >=300 H (NEGATIVE) mg/dL Urine Glucose (UA) NEGATIVE (NEGATIVE) mg/dL Urine Ketones 15 H (NEGATIVE) mg/dL Urine Occult Blood LARGE H (NEGATIVE) Urine Nitrite POSITIVE H (NEGATIVE) Urine Bilirubin MODERATE H (NEGATIVE) Urine Ictotest NEGATIVE Urine Urobilinogen 1.0 (<2.0) EU/dL Ur Leukocyte Esterase NEGATIVE (NEGATIVE) Urine RBC 0-3 (0-2/HPF) Urine WBC 3-6 (0-5/HPF) Ur Epithelial Cells FEW (NONE-FEW) Amorphous Sediment LIGHT (NEGATIVE) Urine Bacteria 3+ H (NEGATIVE) Hyaline Casts 12-15 (0-2/LPF) Urine Mucus LIGHT (NONE-MOD) Urine Opiates Screen NEGATIVE (NEGATIVE) Ur Oxycodone Screen NEGATIVE (NEGATIVE) Urine Methadone Screen NEGATIVE (NEGATIVE) Ur Barbiturates Screen NEGATIVE (NEGATIVE) Ur Phencyclidine Scrn NEGATIVE (NEGATIVE) Ur Amphetamine Screen NEGATIVE (NEGATIVE) U Methamphetamines Scrn NEGATIVE (NEGATIVE) U Benzodiazepines Scrn NEGATIVE (NEGATIVE) U Cocaine Metab Screen NEGATIVE (NEGATIVE) U Marijuana (THC) Screen NEGATIVE (NEGATIVE) Ethyl Alcohol <3 mg/dL 06/05/18 06/06/18 06/06/18 Range/Units 21:17 05:43 05:43 WBC 7.06 (4.0-11.0) K/uL RBC 3.73 L (4.50-5.90) M/uL Hgb 13.0 (13.0-17.0) g/dL Hct 36.5 L (38.0-50.0) % MCV 97.9 (80.0-98.0) fL MCH 34.9 H (27.0-32.0) pg MCHC 35.6 (31.0-37.0) g/dL RDW Std Deviation 48.8 (28.0-62.0) fl RDW Coeff of Diana 14 (11.0-15.0) % Plt Count 69 L (150-400) K/uL MPV 11.70 (7.40-12.00) fL Neut % (Auto) 72.0 (48.0-80.0) % Lymph % (Auto) 14.7 L (16.0-40.0) % [place] % (Auto) 13.3 (0.0-15.0) % Eos % (Auto) 0.0 (0.0-7.0) % Baso % (Auto) 0.0 (0.0-1.5) % Neut # (Auto) 5.1 (1.4-5.7) K/uL Lymph # (Auto) 1.0 (0.6-2.4) K/uL [place] # (Auto) 0.9 H (0.0-0.8) K/uL Eos # (Auto) 0.0 (0.0-0.7) K/uL Baso # (Auto) 0.0 (0.0-0.1) K/uL Nucleated RBC % 0.0 /100WBC Nucleated RBCs # 0 K/uL INR Sodium 138 (136-148) mmol/L Potassium 3.1 L (3.5-5.1) mmol/L Chloride 99 (98-107) mmol/L Carbon Dioxide 28.1 (21.0-32.0) mmol/L BUN 30 H (7.0-18.0) mg/dL Creatinine 1.2 (0.8-1.3) mg/dL Est Cr Clr Drug Dosing 59.09 Estimated GFR (MDRD) > 60.0 ml/min Glucose 90 (74-106) mg/dL Calcium 8.7 (8.5-10.1) mg/dL Magnesium 2.3 (1.8-2.4) mg/dL Total Bilirubin 1.4 H (0.2-1.0) mg/dL AST (15-37) IU/L ALT 60 (14-63) IU/L Alkaline Phosphatase 66 (46-116) U/L Ammonia (19-54) ug/dL Creatine Kinase 255 (26-308) U/L Total Protein 6.8 (6.4-8.2) g/dL Albumin 3.1 L (3.4-5.0) g/dL Globulin 3.7 (2.6-4.0) g/dL Albumin/Globulin Ratio 0.8 L (0.9-1.6) Lipase (73-393) U/L Urine Color Urine Appearance Urine pH (5.0-8.0) Ur Specific [place] (1.001-1.035) Urine Protein (NEGATIVE) mg/dL Urine Glucose (UA) (NEGATIVE) mg/dL Urine Ketones (NEGATIVE) mg/dL Urine Occult Blood (NEGATIVE) Urine Nitrite (NEGATIVE) Urine Bilirubin (NEGATIVE) Urine Ictotest Urine Urobilinogen (<2.0) EU/dL Ur Leukocyte Esterase (NEGATIVE) Urine RBC (0-2/HPF) Urine WBC (0-5/HPF) Ur Epithelial Cells (NONE-FEW) Amorphous Sediment (NEGATIVE) Urine Bacteria (NEGATIVE) Hyaline Casts (0-2/LPF) Urine Mucus (NONE-MOD) Urine Opiates Screen (NEGATIVE) Ur Oxycodone Screen (NEGATIVE) Urine Methadone Screen (NEGATIVE) Ur Barbiturates Screen (NEGATIVE) Ur Phencyclidine Scrn (NEGATIVE) Ur Amphetamine Screen (NEGATIVE) U Methamphetamines Scrn (NEGATIVE) U Benzodiazepines Scrn (NEGATIVE) U Cocaine Metab Screen (NEGATIVE) U Marijuana (THC) Screen (NEGATIVE) Ethyl Alcohol mg/dL Med Orders - Current: Current Medications Enoxaparin Sodium (Lovenox) 30 mg SUBCUT Q24H [facility] Last Admin: 06/06/18 01:03 Dose: 30 mg Folic Acid (Folic Acid) 1 mg PO DAILY [facility] Stop: 06/08/18 09:01 Sodium Chloride (Normal Saline) 1,000 mls @ 125 mls/hr IV ASDIRECTED [facility] Last Infusion: 06/06/18 08:27 Dose: Infused Multivitamins/Minerals 10 ml/Thiamine HCl 100 mg/ Folic Acid 1 mg/ Sodium Chloride 1,011.2 mls @ 100 mls/hr IV ONETIME ONE Stop: 06/06/18 09:54 Last Admin: 06/06/18 01:08 Dose: 100 mls/hr Thiamine HCl 100 mg/ Sodium (Chloride) 51 mls @ 100 mls/hr IV DAILY [facility] Lorazepam (Ativan) 1 - 3 mg IV ASDIRECTED PRN; Protocol PRN Reason: Other Last Admin: 06/06/18 08:00 Dose: 2 mg Ondansetron HCl (Zofran) 4 mg IVPUSH Q4H [facility] Last Admin: 06/06/18 04:41 Dose: 4 mg Pantoprazole Sodium (Protonix Iv) 40 mg IVPUSH Q24H [facility] Last Admin: 06/06/18 01:03 Dose: 40 mg Sodium Chloride (Saline Flush) 10 ml FLUSH ASDIRECTED PRN PRN Reason: Keep Vein Open Sodium Chloride (Saline Flush) 2.5 ml FLUSH ASDIRECTED PRN PRN Reason: Keep Vein Open Discontinued Medications Sodium Chloride (Normal Saline) 1,000 mls @ 999 mls/hr IV STAT ONE Stop: 06/05/18 21:28 Last Admin: 06/05/18 20:36 Dose: 999 mls/hr Ceftriaxone Sodium/Dextrose 1 (gm/ Premix) 50 mls @ 100 mls/hr IV ONETIME ONE Stop: 06/05/18 22:38 Last Admin: 06/05/18 22:49 Dose: 100 mls/hr Sodium Chloride (Normal Saline) Confirm Administered Dose 50 mls @ as directed .ROUTE .STK-MED ONE Stop: 06/05/18 22:30 Last Admin: 06/05/18 22:41 Dose: Not Given Lorazepam 20 mg/ Sodium (Chloride) 100 mls @ 5 mls/hr IV TITRATE [facility]; Protocol Lactulose (Chronulac) 20 gm PO ONETIME ONE Stop: 06/05/18 22:09 Last Admin: 06/05/18 22:41 Dose: Not Given Lorazepam (Ativan) 1 mg IVPUSH NOW STA Stop: 06/05/18 21:18 Last Admin: 06/05/18 21:19 Dose: 1 mg Lorazepam (Ativan) 1 mg IVPUSH ONETIME STA Stop: 06/05/18 22:19 Last Admin: 06/05/18 22:29 Dose: 1 mg Lorazepam (Ativan) 0 mg IV ASDIRECTED [facility]; Protocol Last Admin: 06/06/18 01:05 Dose: 3 mg Lorazepam (Ativan) 0 mg IV ASDIRECTED PRN; Protocol PRN Reason: Other Lorazepam (Ativan) 0 mg IV ASDIRECTED PRN; Protocol PRN Reason: Other Morphine Sulfate (Morphine) 2 mg IVPUSH Q2H PRN PRN Reason: Pain (severe 7-10) Stop: 06/06/18 23:44 - Exam Quality Assessment: Supplemental Oxygen General: Alert, Cooperative, Mild Distress. No: Oriented HEENT: Pupils Equal, Pupils Reactive. No: Mucous Membr. Moist/[place] (Poor [place]) Neck: Supple, Trachea Midline Lungs: Clear to Auscultation, Normal Respiratory Effort Cardiovascular: Regular Rhythm (114 on monitor), Tachycardia. No: Regular Rate GI/Abdominal Exam: Normal Bowel Sounds, Soft, Non-Tender, No Distention (Male) Exam: Deferred Back Exam: Normal Inspection Extremities: Normal Inspection, No Pedal Edema Skin: Warm, Dry, Intact Neurological: No New Focal Deficit Psy/Mental Status: Alert, Anxious, Agitated, Hallucinations, Withdrawal Symptoms - Problem List & Annotations (1) Alcohol withdrawal with delirium SNOMED Code(s): 9684829 Code(s): F10.231 - ALCOHOL DEPENDENCE WITH WITHDRAWAL DELIRIUM Status: Acute Priority: High Current Visit: Yes (2) History of seizure disorder SNOMED Code(s): 282119299 Code(s): Z86.69 - PERSONAL HISTORY OF DIS OF THE NERVOUS SYS AND SENSE ORGANS Status: Acute Priority: High Current Visit: Yes (3) Alcoholism /alcohol abuse SNOMED Code(s): 0385498 Code(s): F10.20 - ALCOHOL DEPENDENCE, UNCOMPLICATED Status: Chronic Priority: High Current Visit: Yes - Problem List Review Problem List Initiated/Reviewed/Updated: Yes - My Orders Last 24 Hours: My Active Orders 06/05/18 23:43 Bedrest Bedside Commode [RC] ASDIRECTED Cardiac Monitoring [RC] CONTINUOUS Oxygen Therapy [RC] PRN Urinary Catheter Assessment [RC] ASDIRECTED VTE/DVT Education [RC] PER UNIT ROUTINE Vital Signs [RC] Q4H Resuscitation Status Routine 06/05/18 23:45 Enoxaparin [Lovenox] 30 mg SUBCUT Q24H Ondansetron [Zofran] 4 mg IVPUSH Q4H 06/05/18 23:48 MVI, Adult with Vitamin K [Infuvite Adult] 10 ml Thiamine [Vitamin B-1] 100 mg Folic Acid 1 mg Sodium Chloride 0.9% [Normal Saline] 1,000 ml IV ONETIME 06/05/18 23:49 Seizure Precautions [OM.PC] Routine - Plan Plan:: The patient is a 48-year-old gentleman who apparently is having alcohol related withdrawal seizures and delirium tremens. The patient will be admitted to the ICU as inpatient. I've ordered a banana bag with multivitamins and thiamine and folate. The patient will also have a Hurley catheter installed. Seizure precautions been ordered. The patient will be placed on a titrated Ativan IV protocol. Repeat laboratory studies have been ordered for the morning. Patient would likely require intense inpatient rehabilitation if desired. We'll keep the patient on telemetry. CIWA has been started. DVT prophylaxis with Lovenox. The patient is a 48-year-old gentleman who was still suffering from alcohol related withdrawal seizures. His CIWA score is 18 and is still completely disoriented. Patient will remain in ICU. He is on seizure precaution. Patient will be maintained on Ativan for agitation and seizures. Patient has a Hurley catheter which will remain. Repeat laboratory studies been ordered for the morning. We'll continue to follow with eICU.
[2018-06-06] MEDS ORDERED: Potassium Chloride Riders 40 MEQ in Premix Bag 1 BAG IV ONE ×2 (09:00→17:30)
[2018-06-06] MEDS ORDERED: Folic Acid 1 MG Tab PO SCH (09:00)
[2018-06-06] MEDS ORDERED: Thiamine 100 MG in Sodium Chloride 0.9% 50 ML IV SCH (09:00)
[2018-06-06] MEDS: Sodium Chloride 0.9% 10 ML Syringe FLUSH PRN ×2 (09:00→16:26)
[2018-06-06] MEDS ORDERED: MVI, Adult with Vitamin K 10 ML, Thiamine 100 MG, Folic Acid 1 MG in Sodium Chloride 0.... IV ONE ×4 (09:30)
--- NOTE | 2018-06-06 13:12 | US ---
EXAMINATION: Renal and bladder ultrasound HISTORY: Hematuria COMPARISON: None TECHNIQUE: Grayscale and color Doppler imaging obtained. FINDINGS: The right kidney measures at least 10.9 cm and the left kidney measures at least 11.37 m [id number] without evidence hydronephrosis. Renal cortical echotexture is normal. Normal color Doppler flow bilaterally. No renal masses or shadowing stones. The adjacent liver appears hyperechoic however homogeneous. There is a Hurley catheter within the urinary bladder. IMPRESSION: 1. The kidneys appear unremarkable. 2. Moderate fatty infiltration of the liver.
[2018-06-06 15:57] LABS: CHLORIDE,CL 102 mmol/L (98-107); SODIUM,NA 136 mmol/L (136-148)
[2018-06-06] MEDS ORDERED: Ondansetron 4 MG/2 ML SDV IVPUSH PRN (17:03)
[2018-06-06] MEDS: D5 1/2 NS w/ 20 mEq/L KCl 1,000 ML IV SCH (19:56)
[2018-06-07] MEDS: LORazepam 2 MG/ML SDV IV PRN ×2 (01:00→10:35)
[2018-06-07] MEDS: Pantoprazole 40 MG Vial IVPUSH SCH (01:22)
[2018-06-07] MEDS: D5 1/2 NS w/ 20 mEq/L KCl 1,000 ML IV SCH ×2 (05:58→15:57)
[2018-06-07 06:39] LABS: CHLORIDE,CL 99 mmol/L (98-107); SODIUM,NA 134 mmol/L (136-148)
[2018-06-07] MEDS ORDERED: Phosphorus #1 250 MG Tab PO ONE (07:30)
[2018-06-07] MEDS: Magnesium Oxide 400 MG Tab PO SCH ×2 (08:27→20:26)
[2018-06-07] MEDS: Potassium Chloride 10 MEQ Tab.ER PO SCH (08:27)
[2018-06-07] MEDS ORDERED: Nicotine 14 MG/24 Hr Patch TRDERM SCH (10:45)
--- NOTE | 2018-06-07 11:05 | PCM.PN ---
- General Info Date of Service: 06/07/18 Admission Dx/Problem (Free Text): Admission Diagnosis/Problem Admission Diagnosis/Problem Alcohol withdrawal syndrome, with delirium Subjective Update: The patient is a 48-year-old gentleman who has been admitted to ICU secondary to acute alcohol delirium tremens. Today he is much more awake and alert. The patient says that he feels better. He says he is less shaky. The patient has required less Ativan overnight. Functional Status: Reports: Pain Controlled, Tolerating Diet - Review of Systems General: Reports: No Symptoms HEENT: Reports: No Symptoms Pulmonary: Reports: No Symptoms Cardiovascular: Reports: No Symptoms Gastrointestinal: Reports: No Symptoms Genitourinary: Reports: No Symptoms Musculoskeletal: Reports: No Symptoms Skin: Reports: No Symptoms Neurological: Reports: Dizziness, Tremors Psychiatric: Reports: Confusion - Patient Data Vitals - Most Recent: Last Vital Signs Temp 36.8 C 06/07/18 08:00 Pulse 63 06/06/18 18:59 Resp 12 06/07/18 10:00 BP 101/68 06/07/18 10:00 Pulse Ox 98 06/07/18 10:00 Weight - Most Recent: 56.7 kg I&O - Last 24 Hours: Intake & Output 06/06/18 06/07/18 06/07/18 22:59 06:59 14:59 Intake Total 1171 1628 Output Total 450 1250 Balance 721 378 Lab Results Last 24 Hours: Laboratory Results - last 24 hr 06/06/18 06/07/18 06/07/18 Range/Units 15:30 06:03 06:03 WBC 4.25 (4.0-11.0) K/uL RBC 3.65 L (4.50-5.90) M/uL Hgb 12.6 L (13.0-17.0) g/dL Hct 36.2 L (38.0-50.0) % MCV 99.2 H (80.0-98.0) fL MCH 34.5 H (27.0-32.0) pg MCHC 34.8 (31.0-37.0) g/dL RDW Std Deviation 47.6 (28.0-62.0) fl RDW Coeff of Diana 13 (11.0-15.0) % Plt Count 73 L (150-400) K/uL MPV 11.00 (7.40-12.00) fL Nucleated RBC % 0.0 /100WBC Nucleated RBCs # 0 K/uL Sodium 136 134 L (136-148) mmol/L Potassium 3.1 L 3.2 L (3.5-5.1) mmol/L Chloride 102 99 (98-107) mmol/L Carbon Dioxide 25.1 31.1 (21.0-32.0) mmol/L BUN 23 H 11 (7.0-18.0) mg/dL Creatinine 0.9 0.8 (0.8-1.3) mg/dL Est Cr Clr Drug Dosing 78.78 89.58 mL/min Estimated GFR (MDRD) > 60.0 > 60.0 ml/min Glucose 83 95 (74-106) mg/dL Calcium 8.3 L 8.7 (8.5-10.1) mg/dL Phosphorus 2.4 L (2.6-4.7) mg/dL Magnesium 1.7 L (1.8-2.4) mg/dL Total Bilirubin 1.8 H (0.2-1.0) mg/dL AST 100 H (15-37) IU/L ALT 61 (14-63) IU/L Alkaline Phosphatase 59 (46-116) U/L Total Protein 6.3 L (6.4-8.2) g/dL Albumin 2.7 L (3.4-5.0) g/dL Globulin 3.6 (2.6-4.0) g/dL Albumin/Globulin Ratio 0.8 L (0.9-1.6) Med Orders - Current: Current Medications Enoxaparin Sodium (Lovenox) 30 mg SUBCUT Q24H [facility] Last Admin: 06/06/18 23:11 Dose: Not Given Folic Acid (Folic Acid) 1 mg PO BEDTIME [facility] Potassium Chloride/Dextrose/Sod Cl (D5 1/2 Ns W/ 20 Meq/L Kcl) 1,000 mls @ 100 mls/hr IV ASDIRECTED [facility] Last Admin: 06/07/18 05:58 Dose: 100 mls/hr Lorazepam (Ativan) 1 - 3 mg IV ASDIRECTED PRN; Protocol PRN Reason: Other Last Admin: 06/07/18 10:35 Dose: 1 mg Magnesium Oxide (Magnesium Oxide) 400 mg PO BID [facility] Last Admin: 06/07/18 08:27 Dose: 400 mg Nicotine (Habitrol) 14 mg TRDERM Q24H [facility] Ondansetron HCl (Zofran) 4 mg IVPUSH Q4H PRN PRN Reason: Nausea Pantoprazole Sodium (Protonix Iv) 40 mg IVPUSH Q24H [facility] Last Admin: 06/07/18 01:22 Dose: 40 mg Potassium Chloride (Klor-Con 10) 10 meq PO DAILY [facility] Last Admin: 06/07/18 08:27 Dose: 10 meq Sodium Chloride (Saline Flush) 10 ml FLUSH ASDIRECTED PRN PRN Reason: Keep Vein Open Last Admin: 06/06/18 16:26 Dose: 10 ml Sodium Chloride (Saline Flush) 2.5 ml FLUSH ASDIRECTED PRN PRN Reason: Keep Vein Open Thiamine HCl (Vitamin B-1) 100 mg PO BEDTIME [facility] Discontinued Medications Folic Acid (Folic Acid) 1 mg PO DAILY [facility] Stop: 06/08/18 09:01 Last Admin: 06/06/18 09:25 Dose: Not Given Sodium Chloride (Normal Saline) 1,000 mls @ 999 mls/hr IV STAT ONE Stop: 06/05/18 21:28 Last Admin: 06/05/18 20:36 Dose: 999 mls/hr Ceftriaxone Sodium/Dextrose 1 (gm/ Premix) 50 mls @ 100 mls/hr IV ONETIME ONE Stop: 06/05/18 22:38 Last Admin: 06/05/18 22:49 Dose: 100 mls/hr Sodium Chloride (Normal Saline) 1,000 mls @ 125 mls/hr IV ASDIRECTED [facility] Last Infusion: 06/06/18 08:27 Dose: Infused Sodium Chloride (Normal Saline) Confirm Administered Dose 50 mls @ as directed .ROUTE .STK-MED ONE Stop: 06/05/18 22:30 Last Admin: 06/05/18 22:41 Dose: Not Given Lorazepam 20 mg/ Sodium (Chloride) 100 mls @ 5 mls/hr IV TITRATE [facility]; Protocol Multivitamins/Minerals 10 ml/Thiamine HCl 100 mg/ Folic Acid 1 mg/ Sodium Chloride 1,011.2 mls @ 100 mls/hr IV ONETIME ONE Stop: 06/06/18 09:54 Last Admin: 06/06/18 01:08 Dose: 100 mls/hr Thiamine HCl 100 mg/ Sodium (Chloride) 51 mls @ 100 mls/hr IV DAILY [facility] Last Admin: 06/06/18 09:50 Dose: 100 mls/hr Potassium Chloride 40 meq/ (Premix) 100 mls @ 25 mls/hr IV ONETIME ONE Stop: 06/06/18 12:59 Last Admin: 06/06/18 09:50 Dose: 25 mls/hr Multivitamins/Minerals 10 ml/Thiamine HCl 100 mg/ Folic Acid 1 mg/ Sodium Chloride 1,011.2 mls @ 100 mls/hr IV ONETIME ONE Stop: 06/06/18 19:36 Last Admin: 06/06/18 09:50 Dose: 100 mls/hr Potassium Chloride 40 meq/ (Premix) 100 mls @ 25 mls/hr IV ONETIME ONE Stop: 06/06/18 21:29 Last Admin: 06/06/18 17:50 Dose: 25 mls/hr Lactulose (Chronulac) 20 gm PO ONETIME ONE Stop: 06/05/18 22:09 Last Admin: 06/05/18 22:41 Dose: Not Given Lorazepam (Ativan) 1 mg IVPUSH NOW STA Stop: 06/05/18 21:18 Last Admin: 06/05/18 21:19 Dose: 1 mg Lorazepam (Ativan) 1 mg IVPUSH ONETIME STA Stop: 06/05/18 22:19 Last Admin: 06/05/18 22:29 Dose: 1 mg Lorazepam (Ativan) 0 mg IV ASDIRECTED [facility]; Protocol Last Admin: 06/06/18 01:05 Dose: 3 mg Lorazepam (Ativan) 0 mg IV ASDIRECTED PRN; Protocol PRN Reason: Other Lorazepam (Ativan) 0 mg IV ASDIRECTED PRN; Protocol PRN Reason: Other Morphine Sulfate (Morphine) 2 mg IVPUSH Q2H PRN PRN Reason: Pain (severe 7-10) Stop: 06/06/18 23:44 Ondansetron HCl (Zofran) 4 mg IVPUSH Q4H [facility] Last Admin: 06/06/18 15:16 Dose: 4 mg Sodium Phosphate (Neutra-Phos) 250 mg PO ONETIME ONE Stop: 06/07/18 07:31 Last Admin: 06/07/18 08:27 Dose: 250 mg - Exam Quality Assessment: No: Supplemental Oxygen General: Alert, Oriented, Cooperative HEENT: Pupils Equal, Pupils Reactive Neck: Supple, Trachea Midline, Other (Poor oral hygiene) Lungs: Clear to Auscultation, Normal Respiratory Effort Cardiovascular: Regular Rate, Regular Rhythm GI/Abdominal Exam: Normal Bowel Sounds, Soft, Non-Tender, No Distention (Male) Exam: Deferred Back Exam: Normal Inspection, Full Range of Motion Extremities: Normal Inspection, Non-Tender, No Pedal Edema Skin: Warm, Dry, Intact Wound/Incisions: Healing Well Neurological: No New Focal Deficit, Other (Improved tremors.) Psy/Mental Status: Alert, Normal Affect - Problem List & Annotations (1) Alcohol withdrawal with delirium SNOMED Code(s): 5086984 Code(s): F10.231 - ALCOHOL DEPENDENCE WITH WITHDRAWAL DELIRIUM Status: Acute Priority: High Current Visit: Yes (2) History of seizure disorder SNOMED Code(s): 070832767 Code(s): Z86.69 - PERSONAL HISTORY OF DIS OF THE NERVOUS SYS AND SENSE ORGANS Status: Acute Priority: High Current Visit: Yes (3) Alcoholism /alcohol abuse SNOMED Code(s): 2273837 Code(s): F10.20 - ALCOHOL DEPENDENCE, UNCOMPLICATED Status: Chronic Priority: High Current Visit: Yes - Problem List Review Problem List Initiated/Reviewed/Updated: Yes - My Orders Last 24 Hours: My Active Orders 06/07/18 09:00 Magnesium Oxide 400 mg PO BID Potassium Chloride [Klor-Con 10] 10 meq PO DAILY 06/07/18 10:44 Remove Urinary Catheter [Urinary Catheter Removal] [RC] Per Unit Routine 06/07/18 10:45 Up ad Rika [RC] ASDIRECTED Nicotine [Habitrol] 14 mg TRDERM Q24H 06/07/18 21:00 Folic Acid 1 mg PO BEDTIME Thiamine [Vitamin B-1] 100 mg PO BEDTIME 06/07/18 Breakfast Regular Diet [DIET] 06/07/18 Lunch Advance Diet Instructions [DIET] - Plan Plan:: The patient is a 48-year-old gentleman who is doing much better today. The patient's overall withdrawal symptoms have improved and he does not appear to be hallucinating. The patient's current CIWA has dropped down to 12. He will be continued on CIWA protocol. The patient will be continued on a regular diet as tolerated. He'll be maintained in ICU and likely downgraded tomorrow. I had a long discussion with the patient with regards to his prospects for continued sobriety and the patient does not have a plan at this time. Unfortunately, I suspect that the patient's prospects for continued sobriety are poor. I've ordered repeat laboratory studies to monitor his electrolytes.
[2018-06-07] MEDS ORDERED: Folic Acid 1 MG Tab PO SCH (21:00)
[2018-06-07] MEDS ORDERED: Thiamine 100 MG Tab PO SCH (21:00)
[2018-06-07] MEDS: Enoxaparin 30 MG/0.3 ML Syringe SUBCUT SCH (23:34)
[2018-06-08] MEDS: Pantoprazole 40 MG Vial IVPUSH SCH (00:06)
[2018-06-08] MEDS: D5 1/2 NS w/ 20 mEq/L KCl 1,000 ML IV SCH (01:48)
[2018-06-08 06:17] LABS: CHLORIDE,CL 100 mmol/L (98-107); SODIUM,NA 133 mmol/L (136-148)
[2018-06-08] MEDS: Potassium Chloride 10 MEQ Tab.ER PO SCH (08:42)
[2018-06-08] MEDS: Magnesium Oxide 400 MG Tab PO SCH (08:42)
--- NOTE | 2018-06-08 08:48 | PCM.PN ---
- Patient Data Vitals - Most Recent: Last Vital Signs Temp 36.9 C 06/08/18 08:00 Pulse 98 06/07/18 18:00 Resp 13 06/08/18 08:00 BP 105/74 06/08/18 08:00 Pulse Ox 96 06/08/18 08:00 Weight - Most Recent: 57.1 kg I&O - Last 24 Hours: Intake & Output 06/07/18 06/08/18 06/08/18 22:59 06:59 14:59 Intake Total 2450 2008 Output Total 775 800 Balance 1675 1209 Lab Results Last 24 Hours: Laboratory Results - last 24 hr 06/08/18 06/08/18 06/08/18 Range/Units 05:33 05:33 05:33 WBC 4.10 (4.0-11.0) K/uL RBC 3.72 L (4.50-5.90) M/uL Hgb 12.8 L (13.0-17.0) g/dL Hct 36.5 L (38.0-50.0) % MCV 98.1 H (80.0-98.0) fL MCH 34.4 H (27.0-32.0) pg MCHC 35.1 (31.0-37.0) g/dL RDW Std Deviation 45.9 (28.0-62.0) fl RDW Coeff of Diana 13 (11.0-15.0) % Plt Count 106 L (150-400) K/uL MPV 11.20 (7.40-12.00) fL Add Manual Diff YES Neutrophils % (Manual) 56 (48.0-80.0) % Band Neutrophils % 1 % Lymphocytes % (Manual) 25 (16.0-40.0) % Monocytes % (Manual) 15 (0.0-15.0) % Eosinophils % (Manual) 3 (0.0-7.0) % Nucleated RBC % 0.0 /100WBC Absolute Seg Neuts 2.3 (1.4-5.7) Band Neutrophils # 0 Lymphocytes # (Manual) 1.0 (0.6-2.4) Monocytes # (Manual) 0.6 (0.0-0.8) Eosinophils # (Manual) 0.1 (0.0-0.7) Nucleated RBCs # 0 K/uL INR 1.08 Sodium 133 L (136-148) mmol/L Potassium 3.8 (3.5-5.1) mmol/L Chloride 100 (98-107) mmol/L Carbon Dioxide 26.9 (21.0-32.0) mmol/L BUN 11 (7.0-18.0) mg/dL Creatinine 0.8 (0.8-1.3) mg/dL Est Cr Clr Drug Dosing 90.21 mL/min Estimated GFR (MDRD) > 60.0 ml/min Glucose 103 (74-106) mg/dL Calcium 8.6 (8.5-10.1) mg/dL Phosphorus 3.1 (2.6-4.7) mg/dL Magnesium 1.5 L (1.8-2.4) mg/dL Total Bilirubin 0.9 (0.2-1.0) mg/dL AST 135 H (15-37) IU/L ALT 92 H (14-63) IU/L Alkaline Phosphatase 83 (46-116) U/L Total Protein 5.9 L (6.4-8.2) g/dL Albumin 2.6 L (3.4-5.0) g/dL Globulin 3.3 (2.6-4.0) g/dL Albumin/Globulin Ratio 0.8 L (0.9-1.6) Med Orders - Current: Current Medications Enoxaparin Sodium (Lovenox) 30 mg SUBCUT Q24H [facility] Last Admin: 06/07/18 23:34 Dose: 30 mg Folic Acid (Folic Acid) 1 mg PO BEDTIME [facility] Last Admin: 06/07/18 20:26 Dose: 1 mg Potassium Chloride/Dextrose/Sod Cl (D5 1/2 Ns W/ 20 Meq/L Kcl) 1,000 mls @ 100 mls/hr IV ASDIRECTED [facility] Last Admin: 06/08/18 01:48 Dose: 100 mls/hr Lorazepam (Ativan) 1 - 3 mg IV ASDIRECTED PRN; Protocol PRN Reason: Other Last Admin: 06/07/18 10:35 Dose: 1 mg Magnesium Oxide (Magnesium Oxide) 400 mg PO BID [facility] Last Admin: 06/08/18 08:42 Dose: 400 mg Nicotine (Habitrol) 14 mg TRDERM Q24H [facility] Last Admin: 06/07/18 11:20 Dose: 14 mg Ondansetron HCl (Zofran) 4 mg IVPUSH Q4H PRN PRN Reason: Nausea Pantoprazole Sodium (Protonix Iv) 40 mg IVPUSH Q24H [facility] Last Admin: 06/08/18 00:06 Dose: 40 mg Potassium Chloride (Klor-Con 10) 10 meq PO DAILY [facility] Last Admin: 06/08/18 08:42 Dose: 10 meq Sodium Chloride (Saline Flush) 10 ml FLUSH ASDIRECTED PRN PRN Reason: Keep Vein Open Last Admin: 06/06/18 16:26 Dose: 10 ml Sodium Chloride (Saline Flush) 2.5 ml FLUSH ASDIRECTED PRN PRN Reason: Keep Vein Open Thiamine HCl (Vitamin B-1) 100 mg PO BEDTIME [facility] Last Admin: 06/07/18 20:26 Dose: 100 mg Discontinued Medications Folic Acid (Folic Acid) 1 mg PO DAILY [facility] Stop: 06/08/18 09:01 Last Admin: 06/06/18 09:25 Dose: Not Given Sodium Chloride (Normal Saline) 1,000 mls @ 999 mls/hr IV STAT ONE Stop: 06/05/18 21:28 Last Admin: 06/05/18 20:36 Dose: 999 mls/hr Ceftriaxone Sodium/Dextrose 1 (gm/ Premix) 50 mls @ 100 mls/hr IV ONETIME ONE Stop: 06/05/18 22:38 Last Admin: 06/05/18 22:49 Dose: 100 mls/hr Sodium Chloride (Normal Saline) 1,000 mls @ 125 mls/hr IV ASDIRECTED [facility] Last Infusion: 06/06/18 08:27 Dose: Infused Sodium Chloride (Normal Saline) Confirm Administered Dose 50 mls @ as directed .ROUTE .STK-MED ONE Stop: 06/05/18 22:30 Last Admin: 06/05/18 22:41 Dose: Not Given Lorazepam 20 mg/ Sodium (Chloride) 100 mls @ 5 mls/hr IV TITRATE [facility]; Protocol Multivitamins/Minerals 10 ml/Thiamine HCl 100 mg/ Folic Acid 1 mg/ Sodium Chloride 1,011.2 mls @ 100 mls/hr IV ONETIME ONE Stop: 06/06/18 09:54 Last Admin: 06/06/18 01:08 Dose: 100 mls/hr Thiamine HCl 100 mg/ Sodium (Chloride) 51 mls @ 100 mls/hr IV DAILY [facility] Last Admin: 06/06/18 09:50 Dose: 100 mls/hr Potassium Chloride 40 meq/ (Premix) 100 mls @ 25 mls/hr IV ONETIME ONE Stop: 06/06/18 12:59 Last Admin: 06/06/18 09:50 Dose: 25 mls/hr Multivitamins/Minerals 10 ml/Thiamine HCl 100 mg/ Folic Acid 1 mg/ Sodium Chloride 1,011.2 mls @ 100 mls/hr IV ONETIME ONE Stop: 06/06/18 19:36 Last Admin: 06/06/18 09:50 Dose: 100 mls/hr Potassium Chloride 40 meq/ (Premix) 100 mls @ 25 mls/hr IV ONETIME ONE Stop: 06/06/18 21:29 Last Admin: 06/06/18 17:50 Dose: 25 mls/hr Lactulose (Chronulac) 20 gm PO ONETIME ONE Stop: 06/05/18 22:09 Last Admin: 06/05/18 22:41 Dose: Not Given Lorazepam (Ativan) 1 mg IVPUSH NOW STA Stop: 06/05/18 21:18 Last Admin: 06/05/18 21:19 Dose: 1 mg Lorazepam (Ativan) 1 mg IVPUSH ONETIME [facility] Stop: 06/05/18 22:19 Last Admin: 06/05/18 22:29 Dose: 1 mg Lorazepam (Ativan) 0 mg IV ASDIRECTED [facility]; Protocol Last Admin: 06/06/18 01:05 Dose: 3 mg Lorazepam (Ativan) 0 mg IV ASDIRECTED PRN; Protocol PRN Reason: Other Lorazepam (Ativan) 0 mg IV ASDIRECTED PRN; Protocol PRN Reason: Other Morphine Sulfate (Morphine) 2 mg IVPUSH Q2H PRN PRN Reason: Pain (severe 7-10) Stop: 06/06/18 23:44 Ondansetron HCl (Zofran) 4 mg IVPUSH Q4H [facility] Last Admin: 06/06/18 15:16 Dose: 4 mg Sodium Phosphate (Neutra-Phos) 250 mg PO ONETIME ONE Stop: 06/07/18 07:31 Last Admin: 06/07/18 08:27 Dose: 250 mg - Problem List & Annotations (1) Alcohol withdrawal with delirium SNOMED Code(s): 2926197 Code(s): F10.231 - ALCOHOL DEPENDENCE WITH WITHDRAWAL DELIRIUM Status: Acute Priority: High Current Visit: Yes (2) History of seizure disorder SNOMED Code(s): 929217432 Code(s): Z86.69 - PERSONAL HISTORY OF DIS OF THE NERVOUS SYS AND SENSE ORGANS Status: Acute Priority: High Current Visit: Yes (3) Alcoholism /alcohol abuse SNOMED Code(s): 5505751 Code(s): F10.20 - ALCOHOL DEPENDENCE, UNCOMPLICATED Status: Chronic Priority: High Current Visit: Yes - My Orders Last 24 Hours: My Active Orders 06/07/18 09:00 Magnesium Oxide 400 mg PO BID Potassium Chloride [Klor-Con 10] 10 meq PO DAILY 06/07/18 10:45 Up ad Rika [RC] ASDIRECTED Nicotine [Habitrol] 14 mg TRDERM Q24H 06/07/18 21:00 Folic Acid 1 mg PO BEDTIME Thiamine [Vitamin B-1] 100 mg PO BEDTIME - Plan Plan:: The patient is a 48-year-old gentleman who is doing much better today. The patient's overall withdrawal symptoms have improved and he does not appear to be hallucinating. The patient's current CIWA has dropped down to 12. He will be continued on CIWA protocol. The patient will be continued on a regular diet as tolerated. He'll be maintained in ICU and likely downgraded tomorrow. I had a long discussion with the patient with regards to his prospects for continued sobriety and the patient does not have a plan at this time. Unfortunately, I suspect that the patient's prospects for continued sobriety are poor. I've ordered repeat laboratory studies to monitor his electrolytes.
--- NOTE | 2018-06-08 09:55 | PCM.DCSUM1 ---
Discharge Summary - Hospital Course Diagnosis: Stroke: No - Discharge Data Discharge Date: 06/08/18 Discharge Disposition: Home, Self-Care 01 Condition: Fair - Discharge Diagnosis/Problem(s) (1) Alcohol withdrawal with delirium SNOMED Code(s): 3911455 ICD Code: F10.231 - ALCOHOL DEPENDENCE WITH WITHDRAWAL DELIRIUM Status: Resolved Priority: High (2) History of seizure disorder SNOMED Code(s): 843053354 ICD Code: Z86.69 - PERSONAL HISTORY OF DIS OF THE NERVOUS SYS AND SENSE ORGANS Status: Chronic Priority: High Problem Details: Alcohol-related (3) Alcoholism /alcohol abuse SNOMED Code(s): 3700746 ICD Code: F10.20 - ALCOHOL DEPENDENCE, UNCOMPLICATED Status: Chronic Priority: High (4) Acute renal failure SNOMED Code(s): 44049568 ICD Code: N17.9 - ACUTE KIDNEY FAILURE, UNSPECIFIED Status: Resolved Priority: High Qualifiers: Acute renal failure type: unspecified Qualified Code(s): N17.9 - Acute kidney failure, unspecified (5) Tobacco abuse disorder SNOMED Code(s): 600148506 ICD Code: Z72.0 - TOBACCO USE Status: Chronic Priority: High - Patient Summary/Data Hospital Course: The patient is a 48-year-old gentleman who was seen in the emergency department and was scheduled to be released when he went out into the lobby fell down and went into a grand mal seizure. Upon admission the patient's blood alcohol level was nondetectable. Other drugs of abuse were also negative. The patient was then subsequently admitted. The patient does have a history of alcohol withdrawal seizures. He was kept in the intensive care unit and he was placed on Ativan protocol with CIWA monitoring. The patient also had been aggressively fluid hydrated secondary to his overall dehydrated state. The patient was kept in seizure precautions and he did not have any evidence of seizures. Initially the patient did have rather severe coarse tremors and this did improve during his course of hospitalization. EICU was involved and help with the management of this patient. The patient slowly improved his mental status and his dehydration and tachycardia improved with fluid hydration. Initially, the patient did have acute renal injury with a BUN/creatinine of 35 and 2.4 respectively. This gave the patient in EGFR of 30 mL/m. By the time of discharge this had resolved. His EGFR was greater than 60 mL/m. The patient was discharged on folic acid 1 mg by mouth at bedtime and thiamine 100 mg by mouth at bedtime. The patient also because he was a smoker was given a prescription for nicotine patch and strongly counseled with regards to smoking cessation. Further, the patient was given information with regards to Alcoholics Anonymous meetings. The patient was recommended to continue with complete abstinence from alcohol. The patient did have a lack of a clear plan without good family support and I suspect that the patient's prospects for continued sobriety are poor. The patient had been tolerating his diet by day of discharge. His tremors had resolved. The patient was able to clearly communicate and he was awake, alert and oriented 4. The patient has been recommended to have a diet as tolerated. He is also to have activity as tolerated. The patient has been discharged from acute hospitalization with the recommendations listed above. - Patient Instructions Diet: Heart Healthy Diet Activity: As Tolerated Other/Special Instructions: Total abstinence from alcohol. Follow-up with AA meetings. - Discharge Plan *PRESCRIPTION DRUG MONITORING PROGRAM REVIEWED*: No *COPY OF PRESCRIPTION DRUG MONITORING REPORT IN PATIENT MARIA FERNANDA: No Prescriptions/Med Rec: Folic Acid 1 mg PO BEDTIME #30 tablet Nicotine [Habitrol] 14 mg TRDERM Q24H #14 patch Thiamine [Vitamin B-1] 100 mg PO BEDTIME #30 tablet Home Medications: Home Meds Folic Acid 1 mg PO BEDTIME #30 tablet 06/08/18 [Rx] Nicotine [Habitrol] 14 mg TRDERM Q24H #14 patch 06/08/18 [Rx] Thiamine [Vitamin B-1] 100 mg PO BEDTIME #30 tablet 06/08/18 [Rx] Oxygen Therapy Mode: Room Air Patient Handouts: Alcohol Use Disorder, Thiamine, Vitamin B1 tablets, Nicotine skin patches, Delirium Tremens, Folic Acid, Vitamin B9 tablets Forms: ED Department Discharge Referrals: Robert Hernandez MD [Resident] - (Please call clinic on Saturday and get follow-up appoinment with PCP in 1 week.) PCP,None [Primary Care Provider] - - Discharge Summary/Plan Comment DC Time >30 min.: Yes - General Info Date of Service: 06/08/18 Admission Dx/Problem (Free Text: Admission Diagnosis/Problem Admission Diagnosis/Problem Alcohol withdrawal syndrome, with delirium Subjective Update: Doing better, awake and alert and oriented. Functional Status: Reports: Pain Controlled, Tolerating Diet - Review of Systems General: Reports: No Symptoms HEENT: Reports: No Symptoms Pulmonary: Reports: No Symptoms Cardiovascular: Reports: No Symptoms Gastrointestinal: Reports: No Symptoms Genitourinary: Reports: No Symptoms Musculoskeletal: Reports: No Symptoms Skin: Reports: No Symptoms Neurological: Reports: No Symptoms Psychiatric: Reports: No Symptoms - Patient Data Vitals - Most Recent: Last Vital Signs Temp 36.9 C 06/08/18 08:00 Pulse 98 06/07/18 18:00 Resp 16 06/08/18 09:00 BP 100/72 06/08/18 09:00 Pulse Ox 96 06/08/18 09:00 Weight - Most Recent: 57.1 kg I&O - Last 24 hours: Intake & Output 06/07/18 06/08/18 06/08/18 22:59 06:59 14:59 Intake Total 2450 2009 Output Total 775 800 Balance 1675 1209 Lab Results - Last 24 hrs: Laboratory Results - last 24 hr 06/08/18 06/08/18 06/08/18 Range/Units 05:33 05:33 05:33 WBC 4.10 (4.0-11.0) K/uL RBC 3.72 L (4.50-5.90) M/uL Hgb 12.8 L (13.0-17.0) g/dL Hct 36.5 L (38.0-50.0) % MCV 98.1 H (80.0-98.0) fL MCH 34.4 H (27.0-32.0) pg MCHC 35.1 (31.0-37.0) g/dL RDW Std Deviation 45.9 (28.0-62.0) fl RDW Coeff of Diana 13 (11.0-15.0) % Plt Count 106 L (150-400) K/uL MPV 11.20 (7.40-12.00) fL Add Manual Diff YES Neutrophils % (Manual) 56 (48.0-80.0) % Band Neutrophils % 1 % Lymphocytes % (Manual) 25 (16.0-40.0) % Monocytes % (Manual) 15 (0.0-15.0) % Eosinophils % (Manual) 3 (0.0-7.0) % Nucleated RBC % 0.0 /100WBC Absolute Seg Neuts 2.3 (1.4-5.7) Band Neutrophils # 0 Lymphocytes # (Manual) 1.0 (0.6-2.4) Monocytes # (Manual) 0.6 (0.0-0.8) Eosinophils # (Manual) 0.1 (0.0-0.7) Nucleated RBCs # 0 K/uL INR 1.08 Sodium 133 L (136-148) mmol/L Potassium 3.8 (3.5-5.1) mmol/L Chloride 100 (98-107) mmol/L Carbon Dioxide 26.9 (21.0-32.0) mmol/L BUN 11 (7.0-18.0) mg/dL Creatinine 0.8 (0.8-1.3) mg/dL Est Cr Clr Drug Dosing 90.21 mL/min Estimated GFR (MDRD) > 60.0 ml/min Glucose 103 (74-106) mg/dL Calcium 8.6 (8.5-10.1) mg/dL Phosphorus 3.1 (2.6-4.7) mg/dL Magnesium 1.5 L (1.8-2.4) mg/dL Total Bilirubin 0.9 (0.2-1.0) mg/dL AST 135 H (15-37) IU/L ALT 92 H (14-63) IU/L Alkaline Phosphatase 83 (46-116) U/L Total Protein 5.9 L (6.4-8.2) g/dL Albumin 2.6 L (3.4-5.0) g/dL Globulin 3.3 (2.6-4.0) g/dL Albumin/Globulin Ratio 0.8 L (0.9-1.6) Med Orders - Current: Current Medications Enoxaparin Sodium (Lovenox) 30 mg SUBCUT Q24H [facility] Last Admin: 06/07/18 23:34 Dose: 30 mg Folic Acid (Folic Acid) 1 mg PO BEDTIME [facility] Last Admin: 06/07/18 20:26 Dose: 1 mg Potassium Chloride/Dextrose/Sod Cl (D5 1/2 Ns W/ 20 Meq/L Kcl) 1,000 mls @ 100 mls/hr IV ASDIRECTED [facility] Last Admin: 06/08/18 01:48 Dose: 100 mls/hr Lorazepam (Ativan) 1 - 3 mg IV ASDIRECTED PRN; Protocol PRN Reason: Other Last Admin: 06/07/18 10:35 Dose: 1 mg Magnesium Oxide (Magnesium Oxide) 400 mg PO BID [facility] Last Admin: 06/08/18 08:42 Dose: 400 mg Nicotine (Habitrol) 14 mg TRDERM Q24H [facility] Last Admin: 06/07/18 11:20 Dose: 14 mg Ondansetron HCl (Zofran) 4 mg IVPUSH Q4H PRN PRN Reason: Nausea Pantoprazole Sodium (Protonix Iv) 40 mg IVPUSH Q24H [facility] Last Admin: 06/08/18 00:06 Dose: 40 mg Potassium Chloride (Klor-Con 10) 10 meq PO DAILY [facility] Last Admin: 06/08/18 08:42 Dose: 10 meq Sodium Chloride (Saline Flush) 10 ml FLUSH ASDIRECTED PRN PRN Reason: Keep Vein Open Last Admin: 06/06/18 16:26 Dose: 10 ml Sodium Chloride (Saline Flush) 2.5 ml FLUSH ASDIRECTED PRN PRN Reason: Keep Vein Open Thiamine HCl (Vitamin B-1) 100 mg PO BEDTIME [facility] Last Admin: 06/07/18 20:26 Dose: 100 mg Discontinued Medications Folic Acid (Folic Acid) 1 mg PO DAILY [facility] Stop: 06/08/18 09:01 Last Admin: 06/06/18 09:25 Dose: Not Given Sodium Chloride (Normal Saline) 1,000 mls @ 999 mls/hr IV STAT ONE Stop: 06/05/18 21:28 Last Admin: 06/05/18 20:36 Dose: 999 mls/hr Ceftriaxone Sodium/Dextrose 1 (gm/ Premix) 50 mls @ 100 mls/hr IV ONETIME ONE Stop: 06/05/18 22:38 Last Admin: 06/05/18 22:49 Dose: 100 mls/hr Sodium Chloride (Normal Saline) 1,000 mls @ 125 mls/hr IV ASDIRECTED [facility] Last Infusion: 06/06/18 08:27 Dose: Infused Sodium Chloride (Normal Saline) Confirm Administered Dose 50 mls @ as directed .ROUTE .STK-MED ONE Stop: 06/05/18 22:30 Last Admin: 06/05/18 22:41 Dose: Not Given Lorazepam 20 mg/ Sodium (Chloride) 100 mls @ 5 mls/hr IV TITRATE [facility]; Protocol Multivitamins/Minerals 10 ml/Thiamine HCl 100 mg/ Folic Acid 1 mg/ Sodium Chloride 1,011.2 mls @ 100 mls/hr IV ONETIME ONE Stop: 06/06/18 09:54 Last Admin: 06/06/18 01:08 Dose: 100 mls/hr Thiamine HCl 100 mg/ Sodium (Chloride) 51 mls @ 100 mls/hr IV DAILY [facility] Last Admin: 06/06/18 09:50 Dose: 100 mls/hr Potassium Chloride 40 meq/ (Premix) 100 mls @ 25 mls/hr IV ONETIME ONE Stop: 06/06/18 12:59 Last Admin: 06/06/18 09:50 Dose: 25 mls/hr Multivitamins/Minerals 10 ml/Thiamine HCl 100 mg/ Folic Acid 1 mg/ Sodium Chloride 1,011.2 mls @ 100 mls/hr IV ONETIME ONE Stop: 06/06/18 19:36 Last Admin: 06/06/18 09:50 Dose: 100 mls/hr Potassium Chloride 40 meq/ (Premix) 100 mls @ 25 mls/hr IV ONETIME ONE Stop: 06/06/18 21:29 Last Admin: 06/06/18 17:50 Dose: 25 mls/hr Lactulose (Chronulac) 20 gm PO ONETIME ONE Stop: 06/05/18 22:09 Last Admin: 06/05/18 22:41 Dose: Not Given Lorazepam (Ativan) 1 mg IVPUSH NOW STA Stop: 06/05/18 21:18 Last Admin: 06/05/18 21:19 Dose: 1 mg Lorazepam (Ativan) 1 mg IVPUSH ONETIME [facility] Stop: 06/05/18 22:19 Last Admin: 06/05/18 22:29 Dose: 1 mg Lorazepam (Ativan) 0 mg IV ASDIRECTED [facility]; Protocol Last Admin: 06/06/18 01:05 Dose: 3 mg Lorazepam (Ativan) 0 mg IV ASDIRECTED PRN; Protocol PRN Reason: Other Lorazepam (Ativan) 0 mg IV ASDIRECTED PRN; Protocol PRN Reason: Other Morphine Sulfate (Morphine) 2 mg IVPUSH Q2H PRN PRN Reason: Pain (severe 7-10) Stop: 06/06/18 23:44 Ondansetron HCl (Zofran) 4 mg IVPUSH Q4H [facility] Last Admin: 06/06/18 15:16 Dose: 4 mg Sodium Phosphate (Neutra-Phos) 250 mg PO ONETIME ONE Stop: 06/07/18 07:31 Last Admin: 06/07/18 08:27 Dose: 250 mg - Exam Quality Assessment: Denies: Supplemental Oxygen General: Reports: Alert, Oriented, Cooperative, No Acute Distress HEENT: Reports: Pupils Equal, Pupils Reactive. Denies: Mucous Membr. Moist/ [place] (Poor oral hygiene) Neck: Reports: Supple, Trachea Midline, No JVD Lungs: Reports: Clear to Auscultation, Normal Respiratory Effort Cardiovascular: Reports: Regular Rate, Regular Rhythm GI/Abdominal Exam: Normal Bowel Sounds, Soft, Non-Tender, No Distention (Male) Exam: Deferred Rectal (Males) Exam: Deferred Back Exam: Reports: Normal Inspection, Full Range of Motion Extremities: Normal Inspection, Normal Range of Motion, No Pedal Edema Skin: Reports: Warm, Dry, Intact Neurological: Reports: No New Focal Deficit Psy/Mental Status: Reports: Alert, Normal Affect, Normal Mood
== END 2018-06-08 10:45 | disposition home or self-care (01) | DRG 897 ==
LOC: MW.ED 20:25 → MW.ICU 22:19 → EDBD 22:19
PROVIDERS: ADMIT Internal Medicine; ATTEND Internal Medicine
DX: F10.231 Alcohol dependence with withdrawal delirium (principal); N17.9 Acute kidney failure, unspecified; F17.200 Nicotine dependence, unspecified, uncomplicated; E86.0 Dehydration; R56.9 Unspecified convulsions; E87.6 Hypokalemia; Z91.14 Patient's other noncompliance with medication regimen
CPT/HCPCS: 36415; 70450; 70450-26; 76775; 76775-26; 80048; 80053; 80305-QW; 81001; 82140; 82550; 83690; 83735; 84100; 85025; 85027; 85610; 96361; 96365; 96375; 96376; 99285-25; A9270-GY; C9113; G0480; J0696; J1650; J2060; J2405; J3411; J3480; J7030; J7040